=== PATIENT | female | born 1955 | race Caucasian/White ===

== ENCOUNTER 2016-06-18 09:53 | Day surgery (SDC) | payer MEDICARE, MEDICAID ==
--- NOTE | 2016-06-14 13:06 | PCM.ANEPRE ---
Anesthesia Pre-Op Review Reason for Review: LEADLESS PACEMAKER,HX OF DVT/PE/CEREBRAL EMBOLI THRU PFO S/ P IVC FILTER Anesthesia Recommendations: Proceed with Procedure Additional Comments 60y F with multiple medical problems scheduled for basilic vein transposition to render previously created AV fistula appropriate for dialysis. 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 She is now off anticoagulation due to bleeding from her gynecologic cancer and has an IVC filter in place. Is scheduled to be dialyzed on 06/17/16. Also of note, her most recent CBC showed her to be moderately anemic and thrombocytopenic with platelets of 70k. She underwent AV fistula formation in under local/MAC and did fine. A/P: 60y F with multiple co-morbidities --Attempted to talk to Kiarra Schmidt about the case. His pre-op indicates that he became aware of her Stage 4 CA only after her interview. And he was therefore going to talk to Dr Mcmanus and perhaps postpone the case --Ideally case would be done under local and light MAC though that is not always possible with vein transposition --labs to be checked on AM of surgery --consider having platelets available as well MD Pb Ivy Scott D MD Jun 14, 2016 13:06
[~2016-06-18] VITALS: Ht 152.4 cm; Wt 68.4 kg
--- NOTE | 2016-06-18 07:23 | PCM.HPANE ---
Patient Data Surgeon Admitting Provider: Attending Provider:Mina Schmidt MD Primary Care Physician:Heath Brandon DO Other Provider:Rachel Singeringham Anesthesia Reason for Visit End Stage Renal Failure Ht/WT & BMI Height (Feet): 5 Height (Inches): 0 Weight (Kilograms): 76.2 Body Mass Index 32.00 Allergies Coded Allergies: ampicillin (Verified Allergy, Unknown, UNKNOWN, 06/13/16) diphenhydramine (Verified Allergy, Unknown, UNKNOWN, 06/13/16) Past Anesthesia History Anesthesia History: Denies:: Anesthesia Reactions, Malignant Hyperthermia Diabetes History Hx Diabetes?: No MRSA MRSA: No Medications Blood Thinner: Coumadin Hypertension Medication: No Reported Medications Acetaminophen 325 Mg Rrhlbv199-339 Mg PO Q4H PRN For Fever Ref 0 06/13/16 Nystatin 1 Each Powder.ea.1 Each MC TID 03/11/16 Folic Acid/Vitamin B Comp W-C (Nephrocaps Softgel)1 Mg Capsule1 Mg PO DAILY 03/11/16 Melatonin 3 Mg Tablet3 Mg PO prn PRN Insomnia 03/11/16 Lorazepam (Ativan)0.5 Mg Tablet0.5 Mg PO Q6H PRN For Anxiety #30 11/26/15 Sevelamer Carbonate (Renvela)800 Mg Tablet1,600 Mg PO TIDWM 11/26/15 Fluticasone Propionate (Flonase Allergy Relief)50 Mcg/Actuation [place].susp2 Sprays NOSTRIL DAILY PRN ALLERGIES 09/27/15 Hydromorphone 2 Mg Tablet2 Mg PO Q4H PRN Pain Ref 0 09/18/15 Heparin Sod (Porcine) (Heparin 100 Unit/10 ml (10/ml))10 Unit/Ml [id number] Unit IV Portacath PRN PORTACATH FLUSH 09/18/15 Bisacodyl (Dulcolax Rectal)10 Mg Supp.rect10 Mg RC DAILY PRN For Constipation Ref 0 08/31/15 Discontinued Reported Medications Polyethylene Glycol 3350 17 Gm Powd.pack17 Gm PO DAILY 11/26/15 Loratadine (Claritin)10 Mg Uziztkx06 Mg PO DAILY PRN ALLERGIES Ref 0 09/27/15 Hydromorphone 2 Mg Tablet4 Mg PO Q4H PRN Pain Ref 0 09/27/15 Ondansetron (Zofran)4 Mg Tablet4 Mg PO Q8hrs PRN For Nausea 08/31/15 Discontinued Scripts Heparin Sodium,Porcine (Heparin Sodium)5,000 Unit/1 Ml Vial5,000 Unit SUBQ Q8 # 12 VIAL Prov:MixonTim H DO 11/28/15 Midodrine 10 Mg Tablet5 Mg PO TID #30 TABLET Prov:MixonLatashaTim H DO 11/28/15 Sennosides (Senna)8.6 Mg Kjouft85.2 Mg PO BID PRN For Constipation #30 TABLET Prov:Edna Ramirez MD 08/27/15 History History of ENT Problems?: Yes Other HEENT Pertinent History: S/P TONSILLECTOMY Hx of Heart Problems?: Yes Cardiovascular History: Positive for:: Cardiac Surgery (LEADLESS PACEMAKER 2015/[facility];IVC FILTER) Edema Hypertension Pacemaker (PLACED 11/2015 FOR AV BLOCK (LEADLESS CAPSULE IN RV)) Thrombophlebitis (hx of DVT/ and PE R/T PFO) Denies:: Chest Pain Congestive Heart Failure Heart Murmur (ECHO 06/2015 & 11/2015 EF 65-70%) Irregular Heartbeat Valvular Heart Disease Other Cardiac History: HX ANEMIA 06/12/16 PLTS 70 (RECEIVING CHEMO) Hx of Respiratory Problem?: Yes Respiratory History: Positive for:: Pneumonia (REMOTELY) Pulmonary Embolism (S/P IVC FILTER (PLACED WHEN WARFARIN STOPPED R/T VAGINAL BLEED)) Denies:: Asthma COPD Chest Surgery Dyspnea Emphysema Hemoptysis Oxygen Administration Tuberculosis Use of C-PAP Machine Hx Neurologic Problems?: Yes Neurological History: Positive for:: CVA ( from DVT thru PFO, periph vision loss) Denies:: Alzheimer's Disease Dementia Dizziness Headaches Multiple Sclerosis Parkinson's Disease Seizures Hx of GI Problems?: No Gastrointestinal History: Denies:: Diverticulitis Gastroesphageal Reflux Gastrointestinal Bleeding Heartburn Hepatitis Hiatal Hernia Rectal Bleeding Hx of Problems?: Yes Genitourinary History: Positive for:: HX of Hemodialysis (3 x weekly-,, S/P A/V FISTULA 03/2016 DIALYSIS ACCESS=CURRENT PROB) Urinary Tract Infection Denies:: Kidney Stones HX of Peritoneal Dialysis: No Female Hx: Denies:: Currently (RECENT HX VAG. BLEED) Endometriosis Pelvic Inflammatory Problems with Breasts? Skin History: Positive for:: Pressure Ulcers Denies:: History Skin Disorders? Hx Musculoskeletal Problems?: No Musculoskeletal History: Denies:: Back Injury Joint Replacement Musculoskeletal Trauma Hx of Psycho/Social Problems?: Yes Psycho Social History: Positive for:: Hx Depression Denies:: Anxiety Bipolar Disorder Suicide Attempt Hx Surgeries?: Yes (TONSILS,A/V FISTULA,IVC FILTER,PACEMAKER(LEADLESS)) Hx Any Other Health Problems?: Yes Other History: Positive for:: Cancer (Ovarian (POSSIBLY PRIMARY UTERINE SITE)) Hospitalization ([facility]) Denies:: Endocrine Disease Thyroid Disease History Blood Transfusions: Denies:: Blood Transfuse Reaction Blood Transfusions Hx Diabetes: No Hx Alcohol Use: NoHx Substance Use: No Smoking Status: Never Smoker Have You Smoked inLast 12 mo: No Stop/Bang S-Snoring: Do You Snore Loudly: No T-Tired: feel tired, fatigued: Yes O-Obsered: Observed not breath: No P-Blood Pressure: treated: Yes B- Body Mass Index > 35 kg/m2: No A- Age over 50: Yes N- Neck Large Circumference: No G- Gender Male: No SONNY Total Score: 3 Risk Assessment Category Category 1A: Patient has history of documented sleep apnea, and HAS NOT received any narcotic, sedative or anesthesia administration during this stay. Category 1B: Patient has history of documented sleep apnea, and HAS received any narcotic , sedative or anesthesia administration during this stay Category 2: Patient has SUSPECTED Obstructive Sleep Apnea, and HAS received any narcotic , sedative or anesthesia administration during this stay. Category 3: Patient has SUSPECTED Obstructive Sleep Apnea and HAS NOT received narcotic, sedative or anesthesia administration during this stay. Category 4: Outpatient in Procedural Areas with known sleep apnea or who screen positive for High Risk via the STOP/BANG questionnaire. Exam Exam General Appearance: Alert, Oriented X3, Cooperative HEENT/AIRWAY: MP 2, Neck Movement (from, thick), Mouth Opening (wnl) Lungs: Clear to Auscultation Heart: Exam Unremarkable Plan Impression Patient chart reviewed, patient interviewed and anesthestic plan with risks, benefits, and alternatives discussed, and informed consent obtained. NPO Status: MN ASA Physical Status: ASA3 Severe Disease Anesthetic Plan: GA Bene/Risks/Altern/Consents: Yes HP Complete Prior to Induction: Yes Other patient prefers GA, DR Schmidt prefers GA. Fan Ordaz MD Jun 18, 2016 07:23
[~2016-06-18 09:53] MED LIST: ACET325T51 PO; BISA10SU61 RC; FLUT9.9S NOSTRIL; FOLI1CAP PO; HYDR2TAB28 PO; LORA-302 PO; Lactated Ringer's 1,000 ML IV ONE; MELA3TAB35 PO; NYST1POW29 MC; SEVE800T7 PO; [UNRECOGNIZED DRUG - CODE] IV
[2016-06-18] MEDS ORDERED: Ropivacaine-PF 0.5% 30 mL Inj ONE (09:54)
[2016-06-18] MEDS ORDERED: Propofol 10,000 mCg/mL 20 mL Inj ONE (09:54)
[2016-06-18] MEDS ORDERED: fentaNYL-PF 50 mCg/mL 2 mL Inj ONE (09:54)
[2016-06-18] MEDS ORDERED: Ondansetron 2 mg/mL 2 mL Inj ONE (09:54)
[2016-06-18] MEDS ORDERED: Phenylephrine/NS 100 mCg/mL 10 mL Syringe IVPUSH ONE (09:54)
[2016-06-18] MEDS ORDERED: Lidocaine 1%-Epi 1:100,000 20 mL Inj ONE (09:54)
[2016-06-18 10:16] VITALS: BP 108/64; PULSE 91; RESP 19; O2SAT 94
[2016-06-18] MEDS ORDERED: 0.9% Sodium Chloride 500 ML IV ONE (10:56)
[2016-06-18 12:07] LABS: Mean Corpuscular Hemoglobin 29.2 pg (27.0-35.0); Mean Corpuscular Volume 93.9 fL (81-100)
[2016-06-18] MEDS ORDERED: 0.9% Sodium Chloride 500 ML IV SCH (12:34)
[2016-06-18] MEDS ORDERED: Ondansetron 2 mg/mL 2 mL Inj IVPUSH PRN (12:35)
[2016-06-18] MEDS ORDERED: EPHEDrine Sulfate 50 mg/mL Inj IVPUSH PRN (12:35)
[2016-06-18] MEDS ORDERED: hydrALAZINE 20 mg/mL Inj IVPUSH PRN (12:35)
[2016-06-18] MEDS ORDERED: Phenylephrine 10,000 mCg/mL Inj IVPUSH PRN (12:35)
[2016-06-18] MEDS ORDERED: fentaNYL-PF 50 mCg/mL 2 mL Inj IVPUSH PRN (12:35)
[2016-06-18] MEDS ORDERED: HYDROmorphone 1 mg/mL Inj IVPUSH PRN (12:35)
[2016-06-18] MEDS ORDERED: Labetalol 5 mg/mL 4 mL Inj IV PRN (12:35)
[2016-06-18] MEDS ORDERED: Atropine 0.4 mg/mL Inj IVPUSH PRN (12:35)
[2016-06-18] MEDS: Clindamycin 900 mg/50 mL D5W IV ONE ×2 (12:43→12:58)
[2016-06-18] MEDS ORDERED: Heparin 5,000 Unit/mL Inj IR ONE (13:26)
[2016-06-18] MEDS ORDERED: HYDROmorphone 1 mg/mL Inj IVPUSH ONE (15:20)
[2016-06-18 15:25] VITALS: BP 101/60; PULSE 89; RESP 20; O2SAT 97
--- NOTE | 2016-06-18 15:38 | PCM.ANEP1 ---
Post Anesthesia Phase 1 PACU Phase 1 Assessment Vital Signs Vital Signs Date Time Temp Pulse Resp B/P Pulse Ox O2 Delivery O2 Flow Rate FiO2 06/18/16 10:16 37.1 91 19 108/64 94 Room Air Anesthetic Administered: Regional Block Level of Alertness: Awake, talking TSAI's with Equal Strength: Yes Pain: No Nausea or Vomiting: No Oxygen Delivery: Room Air Lungs: Normal Air Movement Fan Ordaz MD Jun 18, 2016 15:38
--- NOTE | 2016-06-18 16:29 | PCM.ANEP2 ---
Post Anesthesia Evaluation ASA/CMS Post Anesthesia VS in Patient's Normal Range?: Yes Resp Stable; Airway Patent?: Yes CV Function & Hydration Stable: Yes Mental Status Recovered?: Yes Pain control Satisfactory?: Yes N/V Control Satisfactory?: Yes Fan Ordaz MD Jun 18, 2016 16:29
[2016-06-18 17:15] VITALS: BP 125/46; PULSE 85; RESP 20; O2SAT 95
[2016-06-18] MEDS ORDERED: Heparin 5,000 Unit/mL Inj ONE (17:42)
[2016-06-18] MEDS ORDERED: Heparin 5,000 Unit/mL Inj IRRIGATION ONE (19:10)
--- NOTE | 2016-06-18 22:30 | OP ---
[address] [address] OPERATIVE REPORT PATIENT: SHANNA BURROUGHS : 1955 MR#: [id number] ADMIT: 06/18/2016 JOB ID: [id number] DATE OF SURGERY: 06/18/2016 PREOPERATIVE DIAGNOSIS(ES): 1. End-stage renal failure. 2. Previous left brachial basilic fistula. POSTOPERATIVE DIAGNOSIS(ES): 1. End-stage renal failure. 2. Previous left brachial basilic fistula. PROCEDURE: Left basilic vein transposition. SURGEON: Mina Schmidt MD. LAPEL PADDER: Natanael Hylton PA-C. INDICATIONS: The patient is a 60-year-old female with multiple problems, but they include end-stage renal failure on dialysis, stage IV serous carcinoma, gynecological primary. She also has a history of stroke and DVT. She has had a previous left brachial basilic fistula by me and now is here for transposition of that fistula. She has a very short, thick left upper arm. FINDINGS: She had an excellent thrill in the fistula which dilated nicely and was approximately 12 mm in diameter, but the vein was short and I was not able to tunnel it but I was able to mobilize and then superficialize it by creating subcutaneous bridges underneath it. At the conclusion of the procedure, she had an excellent thrill in the fistula. PROCEDURE DESCRIPTION: After discussing options with Dr. Juan M Ordaz, the patient agreed to A regional block which Dr. Ordaz performed. He also administered sedation. She did get some supplemental local anesthesia with 1% lidocaine. The thrill in her fistula could be appreciated and after prepping her left upper extremity with ChloraPrep and draping in usual fashion, a vertical incision was made following the fistula. It was then exposed with sharp dissection and deep branches were divided and ligated with 3-0 silk suture ligatures. After completely freeing the vein, it was occluded proximally and distally. I then divided it distally at an angle and then was able to pull it out from underneath the sensory nerve so that it could be superficialized. I reattached the vein to itself with running 6-0 Prolene. The vein had been marked before dividing it to prevent twisting. I then placed a 15-German Hemovac drain through a separate stab wound, exiting the forearm which was secured with 2-0 nylon and placed deep in the operative bed. Subcutaneous bridges were then constructed with interrupted mattress sutures of 3-0 Vicryl. I then made a medial skin flap with an attempt to have the vein lay medial to the incision. The incision was then closed with running subcuticular 4-0 Vicryl and Dermabond. Estimated blood loss was 20 cc. There were no apparent complications. The final sponge, needle and instrument counts were announced as correct and she was returned to recovery room in stable condition. Critical assistance was provided by Natanael Hylton PA-C, without whose assistance the operation could not have been successfully completed.
[2016-07-17] MEDS ORDERED: WARF2TAB7 PO (19:21)
[2016-07-17] MEDS ORDERED: ONDA4TAB6 PO (19:21)
[2016-07-17] MEDS ORDERED: CITA10TA9 PO (19:21)
[2016-07-17] MEDS ORDERED: SENN-133 PO (19:21)
[2016-07-17] MEDS ORDERED: LORA10CA PO (19:21)
== END 2016-06-18 23:59 | disposition home or self-care (01) ==
LOC: SAS 09:53
PROVIDERS: ATTEND Surgery
DX: N18.6 End stage renal disease (principal); I12.0 Hypertensive chronic kidney disease with stage 5 chronic kidney disease or end stage renal disease; Z99.2 Dependence on renal dialysis; C56.9 Malignant neoplasm of unspecified ovary; Q21.1 Atrial septal defect; D64.9 Anemia, unspecified; I82.409 Acute embolism and thrombosis of unspecified deep veins of unspecified lower extremity; Z86.711 Personal history of pulmonary embolism; Z86.73 Personal history of transient ischemic attack (TIA), and cerebral infarction without residual deficits; Z92.21 Personal history of antineoplastic chemotherapy; Z79.01 Long term (current) use of anticoagulants
CPT/HCPCS: 36415; 36819; 76942; 84132; 85027; J1644; J2370; J2405; J2795; J7030

== ENCOUNTER 2016-07-19 02:23 | Day surgery (SDC) | payer MEDICARE, MEDICAID ==
[~2016-07-19] VITALS: Ht 152.4 cm; Wt 68.0 kg
[2016-07-19] VITALS (10 sets, daily range): BP systolic 76–106; BP diastolic 53–64; PULSE 75–89; RESP 14; O2SAT 93–100
[~2016-07-19 02:23] MED LIST changes: +CITA10TA9 PO; +LORA10CA PO; -Lactated Ringer's 1,000 ML IV ONE; +ONDA4TAB6 PO; +SENN-133 PO; +WARF2TAB7 PO
[2016-07-19 11:15] LABS: EOSINOPHILS % (AUTO) 0.6 % (0-5)
[2016-07-19 11:17] LABS: BASOPHILS % (AUTO) 0.3 % (0-3); MONOCYTES % (AUTO) 6.6 % (4-12); Mean Corpuscular Hemoglobin 29.3 pg (27.0-35.0); Mean Corpuscular Volume 92.1 fL (81-100); NEUTROPHILS % (AUTO) 84.5 % (40-74); Platelet Count 147 bil/L (150-400)
[2016-07-19] MEDS ORDERED: 0.9% Sodium Chloride 500 ML ONE (11:53)
[2016-07-19] MEDS ORDERED: Clindamycin 900 mg/50 mL D5W IV ONE (12:00)
[2016-07-19] MEDS ORDERED: Heparin 5,000 Units/500 mL NS Premix IV ONE (12:05)
[2016-07-19] MEDS ORDERED: fentaNYL-PF 50 mCg/mL 2 mL Inj ONE (12:36)
[2016-07-19] MEDS ORDERED: Heparin 1,000 Unit/mL 10 mL Inj ONE (12:36)
--- NOTE | 2016-07-19 15:13 | DRSVH ---
PROCEDURE: CV REPLACE CATH ALIALD 1. Conscious sedation for 30 minutes. 2. Left internal jugular vein tunneled hemodialysis catheter replacement. 3. Fluoroscopic guidance for catheter placement. INDICATIONS: ESRD TECHNIQUE: The indications, alternatives, benefits, risks, and complications of the procedure were e xplained to the patient and any family members present. Informed written consent was obtained and pl aced in the chart. The patient was brought to the angiography suite, and conscious sedation was admi nistered intravenously by [facility] staff, while continuous cardiorespiratory monitoring was pe rformed. Maximum sterile barrier technique was employed per standard protocol, including hand hygiene, cap, ma sk, sterile gown and gloves, and 2% chlorhexidine. 1% lidocaine was used for local anaesthesia. 2034 Glidewires were advanced through the lumens of the existing tunneled hemodialysis catheter. The tips of the wires were advanced into the IVC with the ai d of a Kumpe catheter. The catheter was removed, and a new dual-lumen hemodialysis catheter was advan carol ann under fluoroscopy with the tip in the right atrium. Adequate flow was obtained through both lumens of the catheter. The catheter was sutured at the left chest wall with nonabsorbable suture. Both lumens were flushed with heparinized saline. The patient tolerated the procedure without difficulty and was in stable condition at the conclusion of the procedure. COMPARISON: [facility], XA, CV REPLACE CATH ABHI, 10/27/2015, 13:44. FINDINGS: Fluoroscopic imaging demonstrates tip of the catheter was projected over the right atrium. IMPRESSION: Right internal jugular vein tunneled hemodialysis catheter replacement using fluoroscopic guidance. Dictated by: Lana Anderson M.D. on 07/19/2016 at 15:09 Approved by: Lana Anderson M.D. on 07/19/2016 at 15:11
--- NOTE | 2016-07-19 16:54 | NUR ---
Pt discharged from [facility], taken to kidney dialysis center via w/c. Pt's VSS, Lt upper chest tunnel cath in situ, CDI with no bleeding noted. Pt handoff given to dialysis nurse.
== END 2016-07-19 23:59 | disposition home or self-care (01) ==
LOC: SPI 02:23
PROVIDERS: ATTEND Radiology Vascular & Interventional Radiology
DX: Z49.01 Encounter for fitting and adjustment of extracorporeal dialysis catheter (principal); N18.6 End stage renal disease
CPT/HCPCS: 36415; 36581; 77001; 80048; 85025; 85730; 86922; 99152; 99153; C1750; C1769; J1644; J2250; J3010; J7040

== ENCOUNTER 2016-07-23 10:46 | Inpatient (IN) | payer MEDICARE, MEDICAID ==
[2016-07-23] VITALS (14 sets, daily range): BP systolic 76–174; BP diastolic 50–129; PULSE 92–133; RESP 11–29; O2SAT 92–100
[~2016-07-23] VITALS: Ht 152.4 cm; Wt 67.2 kg
--- NOTE | 2016-07-23 10:56 | ED.REPORT ---
HPI-Altered Mental Status Date of Service Jul 23, 2016 ED Provider: Efraín Richardson MD 60 year old female with ovarian cancer and ESRD, history of PE on dialysis presents to the ER via EMS due to altered mental status. Per chain saw driver, patient was en route to her dialysis appointment when she had a period of unresponsiveness. Patient has recently ceased chemotherapy treatments. History is limited due to patient's mental status. Nursing Notes Stated Complaint: UNRESPONSIVE Nursing Notes Reviewed: Yes Allergies: Coded Allergies: ampicillin (Verified Allergy, Unknown, UNKNOWN, 06/13/16) diphenhydramine (Verified Allergy, Unknown, UNKNOWN, 06/13/16) Scheduled Citalopram (Citalopram) 10 Mg Tablet 10 MG PO DAILY Folic Acid/Vitamin B Comp W-C (Nephrocaps Softgel) 1 Mg Capsule 1 MG PO DAILY Nystatin (Nystatin) 1 Each Powder.ea. 1 EACH MC TID Sevelamer Carbonate (Renvela) 800 Mg Tablet 1,600 MG PO TIDWM Warfarin Sodium (Warfarin Sodium) 2 Mg Tablet 2 MG PO DAILY Scheduled PRN Acetaminophen (Acetaminophen) 325 Mg Tablet 325-650 MG PO Q4H PRN PRN For Fever Bisacodyl (Dulcolax Rectal) 10 Mg Supp.rect 10 MG RC DAILY PRN PRN For Constipation Fluticasone Propionate (Flonase Allergy Relief) 50 Mcg/Actuation [place].susp 2 SPRAYS NOSTRIL DAILY PRN PRN ALLERGIES Heparin Sod (Porcine) (Heparin 100 Unit/10 ml (10/ml)) 10 Unit/Ml Unit 500 UNIT IV Portacath PRN PRN PORTACATH FLUSH Hydromorphone (Hydromorphone) 2 Mg Tablet 2-4 MG PO Q4H PRN PRN Pain Loratadine (Claritin) 10 Mg Capsule 10 MG PO DAILY PRN PRN For Congestion Lorazepam (Ativan) 0.5 Mg Tablet 0.5-1 MG PO Q6H PRN PRN For Anxiety Melatonin (Melatonin) 3 Mg Tablet 3 MG PO prn PRN PRN Insomnia Ondansetron (Zofran) 4 Mg Tablet 4 MG PO Q4H PRN PRN For Nausea Sennosides (Senna) 8.6 Mg Tablet 17.2 MG PO BID PRN PRN For Constipation General Time Seen by MD: 10:56 Chief Complaint Other (Altered Mental Status) Hx Obtained From: EMS Arrived By: Ambulance Sudden in Onset?: Yes Onset Occurred: Just prior to arrival Symptom Duration: Since onset Related History: Reports Renal failure Risk Factors Mcrae Coma Score > Age 5 Eye Opening: Open spontaneously (4) Past Medical History Past Medical History Right upper lobe PE, dx on 08/10/15 on Coumadin Ovarian cancer on palliative chemotherapy End stage renal disease on hemodialysis Normocytic anemia DVT Reports: Hypertension Reports: Renal failure Past Surgical History Dialysis catheter placement Reports: Tonsillectomy Family History noncontributory Smoking History Never Smoker Social History Alcohol Use: Denies alcohol use Drug Use: Denies drug use Occupation lives by self in one story house Ambulatory Status Independent Review of Systems Unable to Obtain ROS Mental status Physical Exam Initial Vital Signs Vital Signs (First) Date Time Temp Pulse Resp B/P Pulse Ox O2 Delivery O2 Flow Rate FiO2 07/23/16 10:55 36.8 121 29 96/68 100 Room Air 07/23/16 12:10 2 Initial VS: Reviewed Extremities: Vascular intact, Neuro intact, No swelling, No tenderness General/Constitutional: Well developed, Well nourished Head / Eyes: Normocephalic, PERRL (2-3mm) Neck: Atraumatic, Supple, No meningismus, Full range of motion, No swelling, Non-tender, No midline vertebral tend, No masses, No carotid bruit, Thyroid NL Respiratory / Chest: Breath sounds NL, Breath sounds = bilat, No respiratory distress, No rales, No rhonchi, No wheezing Cardiovascular: Regular rhythm, No gallop, No murmurs, No rubs Heart Rate / Rhythm: Positive: Tachycardia Neurologic: Speech NL Eyes closed, does not answer questions. Responds to voice. Repeated questioning. Says "Help me" repeatedly. Abdomen: Soft, Non-tender, No guarding, No rebound LLQ mass 4x5cm Interpretation & Diagnostics Lab Results Interpretation Result Diagram: 07/23/16 1128 07/23/16 1128 Test 07/23/16 11:28 07/23/16 12:53 White Blood Count 15.4th/mm3 (3.8-10.1) Red Blood Count 3.05mil/mm3 (3.90-5.20) Hemoglobin 8.7g/dL (12.0-15.6) Hematocrit 29.0% (35.0-46.0) Mean Corpuscular Volume 95.1fL (81-100) Mean Corpuscular Hemoglobin 28.5pg (27.0-35.0) Mean Corpuscular Hemoglobin Concent 30.0% (32.0-37.0) Red Cell Distribution Width 17.0% (12.3-15.4) Platelet Count 165bil/L (150-400) Neutrophils (%) (Auto) 82% (40-74) Lymphocytes (%) (Auto) 6% (14-46) Monocytes (%) (Auto) 6% (4-12) Eosinophils (%) (Auto) 0% (0-5) Basophils (%) (Auto) 0% (0-3) Band Neutrophils % 3% (1-5) Metamyelocytes % 1% (0-0) Myelocytes % 2% (0-0) D-Dimer 16.9mg/L (<0.50) Sodium Level 139mEq/L (134-144) Potassium Level 3.5mEq/L (3.5-5.2) Chloride Level 94mEq/L (97-108) Carbon Dioxide Level 18mmol/L (18-29) Blood Urea Nitrogen 27mg/dL (6-24) Creatinine 4.87mg/dL (0.57-1.00) Estimat Glomerular Filtration Rate 13mL/min (>59) Glucose Level 159mg/dL (60-99) Lactic Acid Level 7.3mmol/L (0.4-2.0) Calcium Level 8.0mg/dL (8.5-10.1) Phosphorus Level 4.9mg/dL (2.5-4.9) Magnesium Level 1.9mg/dL (1.6-2.6) Total Bilirubin 0.9mg/dL (0.0-1.2) Aspartate Amino Transf (AST/SGOT) 9U/L (0-50) Alanine Aminotransferase (ALT/SGPT) < 5U/L (0-32) Alkaline Phosphatase 78U/L (25-165) Troponin T 0.179ug/L (0.0-0.011) Total Protein 6.1g/dL (6.4-8.4) Albumin 2.2g/dL (3.4-5.0) Salicylates Level < 3.0ug/mL (30-250) Acetaminophen Level < 15.0ug/mL Rx (10-25) Alcohol, Quantitative < 10mg/dL (0-10) Urine Color Dark yellow (YELLOW) Urine Appearance Turbid (CLEAR,HAZY) Urine pH 7.0 (5.0-8.0) Urine Specific [place] 1.020 (1.003-1.035) Urine Protein 100mg/dL (NEG,TRACE) Urine Glucose (UA) Negativemg/dL (NEGATIVE) Urine Ketones Negativemg/dL (NEGATIVE) Urine Occult Blood Moderate (NEGATIVE) Urine Nitrite Positive (NEGATIVE) Urine Bilirubin Negative (NEGATIVE) Urine Urobilinogen Normalmg/dL (NORMAL) Urine Leukocyte Esterase Moderate (NEGATIVE) Urine RBC 0-2/hpf (0-2) Urine WBC Packed/hpf (0-5) Urine Epithelial Cells Occasional/hpf (NONE-MOD) Urine Crystals Ammonium biurates (NONE Urine Bacteria Many/hpf (NONE-FEW) Urine Hyaline Casts None/lpf (NONE) Urine Granular Casts None seen (NONE SEEN) Urine Waxy Casts None seen (NONE SEEN) Urine Red Blood Cell Casts None seen (NONE SEEN) Urine White Blood Cell Casts None seen (NONE SEEN) Urine Mucus None seen (None Seen) Urine Trichomonas None seen (NONE SEEN) Urine Yeast None (NONE SEEN) Urinalysis Comment None Urine Culture Reflexed Indicated ECG Interpretation ECG Interpretation: Sinus tachycardia, rate 136 RBBB Q waves in 2, 3, aVF T wave inversions in v1, v2 Unchanged from prior ECG 04/30/2016 Time: 11:15 Interpreted by: ED physician X-Ray Chest Interpretation Chest Xray Interpretation: IMPRESSION: No acute cardiopulmonary disease. Dictated by: Jonathon Tai M.D. on 07/23/2016 at 11:38 Approved by: Jonathon Tai M.D. on 07/23/2016 at 11:54 View: Portable, 1 view Interpretation / Wet Read by: Interpret - Radiologist CT Head Interpretation IMPRESSION: No acute intracranial disease process. Dictated by: Bonnie Caballero MD, PhD on 07/23/2016 at 12:04 Approved by: Bonnie Caballero MD, PhD on 07/23/2016 at 12:08 Study: Head CT no contrast Interpretation / Wet Read by: Interpret - Radiologist CT Chest Interpretation IMPRESSION: 1. No pulmonary embolus. 2. Numerous bilateral pulmonary nodules which have developed since prior examination obtained 05/04/2016. Pulmonary nodules have imaging characteristics most compatible with metastatic disease. 3. Subcarinal, mediastinal lymphadenopathy compatible with metastatic disease. 4. Liver has nodular margins suggestive of hepatic cirrhosis. Please correlate with clinical and laboratory findings. 5. Small amount of ascites in the upper abdomen. 6. Small left-sided pleural effusion. Trace right sided pleural effusion. Dictated by: Bonnie Caballero MD, PhD on 07/23/2016 at 13:09 Approved by: Bonnie Caballero MD, PhD on 07/23/2016 at 14:20 Study type: CT pulm angiogram Interpretation / Wet Read by: Interpret - Radiologist Re-Eval/Medical Decision Med Decision/Clinical Course 60-year-old female history of ovarian cancer status post chemotherapy discharged, end-stage renal disease on dialysis, history of PE presenting with altered mental status. Patient recently told by oncologist Dr. Mcmanus not candidate for further treatment at this time. She is unwilling to go on hospice. She was on her way to dialysis today and had episode of mental status. On arrival she was altered. Her lactate is 7. Urine positive for infection. D-dimer significantly elevated. CT angio chest no PE but with lung metastases. Troponins elevated, just baseline. Patient also with decubitus ulcer with packing in place. No surrounding erythema. Patient will be admitted for sepsis. She was given vancomycin and aztreonam to cover urinary source as well as decubitus ulcer. She was given 2 L normal saline. Discussed with nephrology Dr. Olmstead who is aware patient is here and will see. We will trend troponins given aspirin. No heparin at this time given history of vaginal bleeding on anticoagulants past. [facility]BAS[facility] is working to discuss with family for possible palliative care consult. Source of Hx: Old records Re-Evaluation/Progress : Time of Eval: 12:04 Re-Evaluation/Progress Note: Patient is resting peacefully. BP 160/90 Consultation #1: Referral / Consult Name: Neo Manzo MD Consulted With: Nephrology Call Returned at: 13:06 Note: No heparin. Consultation #2: Referral / Consult Name: Misty Gross MD Consulted With: Hospitalist Call Returned at: 14:05 Geotechnical Department Manager: Agrees with eval, Agrees with plan, Accepts admit Counseled Regarding: Diagnosis, Lab results, Need for admission Patient Discharge & Departure Impression: Primary Impression: Septic shock Additional Impressions: Decubitus ulcer Elevated troponin UTI (urinary tract infection) Disposition: ADMITTED TO HOSPITAL Discharge Condition All VS Reviewed: Yes Condition: Critical Referrals: Gavino Clark MD (PCP) Crit Care Except Billable Proc Time Spent: 30-74 minutes Services Performed: Patient management by me, Time spent at bedside, Reviewing test results, Reviewing imaging, Discussing patient care, Documentation in record Scribe Attestation Portions of this note were transcribed by Osiel Potter. I, Dr. Richardson, personally performed the history, physical exam and medical decision-making; I reviewed and confirmed the accuracy of the information in the transcribed note. Signed by: Cj Parra, 07/23/2016 - 14:26 copies to: Gavino Clark MD, Ben M MD Jul 23, 2016 10:56 OSIEL POTTER Jul 23, 2016 11:04
[2016-07-23] MEDS ORDERED: 0.9% Sodium Chloride 1,000 ML IV ONE ×2 (11:03→13:08)
[2016-07-23 11:47] LABS: Mean Corpuscular Hemoglobin 28.5 pg (27.0-35.0); Mean Corpuscular Volume 95.1 fL (81-100); Platelet Count 165 bil/L (150-400)
--- NOTE | 2016-07-23 11:56 | DRSVH ---
PROCEDURE: X-RAY CHEST ONE VIEW, PORTABLE ([id number]) INDICATIONS: altered mental status TECHNIQUE: One view of the chest was acquired. COMPARISON: [facility], CR, XR CHEST 1VW (PORTABLE), 04/30/2016, 14:03. FINDINGS: Surgical changes and devices: There is a double lumen dialysis catheter with the tip in right atrium. A Port-A-Cath is noted on the right with the tip in SVC. Lungs and pleura: There is diffuse interstitial prominence. No pleural effusions or pneumothorax. L ungs are clear. Mediastinum: Mediastinal contours appear normal. Heart size is normal. Bones and chest wall: No suspicious bony lesions. Overlying soft tissues appear unremarkable. IMPRESSION: No acute cardiopulmonary disease. Dictated by: Jonathon Tai M.D. on 07/23/2016 at 11:38 Approved by: Jonathon Tai M.D. on 07/23/2016 at 11:54
--- NOTE | 2016-07-23 12:09 | DRSVH ---
PROCEDURE: CT BRAIN WITHOUT CONTRAST ([id number]) INDICATIONS: Acute altered mental status TECHNIQUE: Noncontrast 4.5 mm thick angled axial sections acquired from the foramen magnum to the vertex, with c oronal reformats. COMPARISON: [facility], CT, CT BRAIN WO CON, 10/11/2015, 18:58. FINDINGS: Image quality: Excellent. CSF spaces: Basal cisterns are patent. No extra-axial fluid collections. The ventricles are symmet mattie in size and shape. Brain: No intracranial bleeds or masses. There is cerebral volume loss for age, with resultant vent ricular and sulcal prominence. There are periventricular and deep white matter chronic small vessel ischemic changes. Chronic bilateral parietal-occipital lobe infarcts are stable compared to prior exa mination. There is intracranial internal carotid artery atherosclerosis. Skull and face: Calvarium and visualized facial bones appear intact, without suspicious lesions. Sinuses: Mucosal thickening within the maxillary sinuses. The mastoids are clear. IMPRESSION: No acute intracranial disease process. Dictated by: Bonnie Caballero MD, PhD on 07/23/2016 at 12:04 Approved by: Bonnie Caballero MD, PhD on 07/23/2016 at 12:08
[2016-07-23 12:38] LABS: TROPONIN T 0.177 ug/L (0.0-0.011)
[2016-07-23 12:46] LABS: BASOPHILS % (AUTO) 0 % (0-3); EOSINOPHILS % (AUTO) 0 % (0-5); MONOCYTES % (AUTO) 6 % (4-12); NEUTROPHILS % (AUTO) 82 % (40-74)
[2016-07-23] MEDS ORDERED: Heparin 25K Unit/500mL 0.45 NS 25,000 UNIT in IV Premix 1 EACH IV ONE (12:50)
[2016-07-23] MEDS ORDERED: Heparin 5,000 Unit/mL Inj IVPUSH ONE (12:50)
[2016-07-23] MEDS ORDERED: Vancomycin Dose per Pharmacist XX ONE ×2 (13:10→14:50)
[2016-07-23] MEDS ORDERED: Aztreonam Inj 2,000 MG in Dextrose 5% Minibag Plus 100 ML IV ONE (13:10)
[2016-07-23 13:15] LABS: APPEARANCE,URINE TURBID (CLEAR,HAZY); COLOR,URINE DARK YELLOW (YELLOW)
[2016-07-23 13:16] LABS: OCCULT BLOOD,URINE MODERATE (NEGATIVE); UROBILINOGEN,URINE NORMAL (NORMAL)
[2016-07-23] MEDS ORDERED: Vancomycin Inj 1,250 MG in 0.9% Sodium Chloride 250 ML IV ONE (13:25)
--- NOTE | 2016-07-23 14:22 | DRSVH ---
PROCEDURE: CT ANGIO CHEST PULMONARY EMBOLISM ([id number]) INDICATIONS: dyspnea elevated ddimer TECHNIQUE: After the administration of intravenous contrast, 2 mm thick sections acquired from the pulmonary api kelin to the posterior costophrenic angles. 3-dimensional maximum intensity projection (MIP) coronal a nd sagittal reformats were then acquired through the thorax. For radiation dose reduction, the follo wing was used: automated exposure control, adjustment of mA and/or kV according to patient size. COMPARISON: [facility], [place], PET NECK TO MID THIGH STD, 03/08/2016, 10:33. Outside Film, CT, CT CHEST ABD PELVIS W CON, 05/04/2016, 9:07. FINDINGS: Image quality: Excellent. Pulmonary arteries: Pulmonary arteries are normal in size, and demonstrate no intraluminal filling d efects to suggest central pulmonary embolism. Lungs and pleura: Numerous nodules are scattered throughout the lungs bilaterally are most compatible with pulmonary metastatic disease. Small left-sided pleural effusion is noted. Trace pericardial eff usion is noted. No pneumothorax. Central and peripheral airways are patent. Mediastinum: Heart size is normal, without pericardial effusion 1.3 cm subcarinal mediastinal lymph node is noted compatible with mediastinal lymphadenopathy. Numerous additional prominent mediastinal lymph nodes are noted which do not meet pathologic size criteria. Prominent bilateral hilar lymph nod es are noted which do not meet pathologic size criteria. Thoracic aorta is normal in caliber and enha ncement. Esophagus is normal in caliber, without hiatal hernia. Bones and chest wall: Left chest wall dual lumen dialysis catheter is noted with tip projecting to th e distal SVC. Right chest wall Port-A-Cath is noted. No suspicious bony lesions. Ribs and thoracic s pine appear intact throughout. No axillary or supraclavicular adenopathy. Abdomen: Liver is slightly nodular margin. Small amount of ascites noted in the upper quadrants of th e abdomen. IMPRESSION: 1. No pulmonary embolus. 2. Numerous bilateral pulmonary nodules which have developed since prior examination obtained 016. Pulmonary nodules have imaging characteristics most compatible with metastatic disease. 3. Subcarinal, mediastinal lymphadenopathy compatible with metastatic disease. 4. Liver has nodular margins suggestive of hepatic cirrhosis. Please correlate with clinical and labo ratory findings. 5. Small amount of ascites in the upper abdomen. 6. Small left-sided pleural effusion. Trace right sided pleural effusion. Dictated by: Bonnie Caballero MD, PhD on 07/23/2016 at 13:09 Approved by: Bonnie Caballero MD, PhD on 07/23/2016 at 14:20
[2016-07-23] MEDS ORDERED: 0.9% Sodium Chloride 1,000 ML IV SCH ×2 (14:47)
[2016-07-23] MEDS ORDERED: Ondansetron 2 mg/mL 2 mL Inj IVPUSH PRN (14:50)
[2016-07-23] MEDS ORDERED: Alum-Mag Hydrox-Simeth 30 mL Suspension PO PRN (14:50)
[2016-07-23] MEDS ORDERED: Polyethylene Glycol (PEG) 17 Gm Powder PO PRN (14:50)
[2016-07-23 15:14] LABS: Magnesium 1.9 mg/dL (1.6-2.6); Phosphorus 4.9 mg/dL (2.5-4.9)
[2016-07-23 15:27] LABS: TROPONIN T 0.179 ug/L (0.0-0.011)
[2016-07-23] MEDS: Sodium Chloride LOK Flush 10 mL Syringe IVFLUSH SCH (16:30)
[2016-07-23] MEDS ORDERED: HepLOK Flush 100 unit/mL 5 mL Inj IVFLUSH PRN ×2 (16:40→20:00)
[2016-07-23] MEDS ORDERED: Sodium Chloride LOK Flush 10 mL Syringe IVFLUSH PRN ×2 (16:40)
[2016-07-23] MEDS ORDERED: Heparin 5,000 Unit/mL Inj SUBQ SCH (17:00)
--- NOTE | 2016-07-23 17:38 | CONS ---
[address] [address] CONSULTATION REPORT PATIENT: SHANNA BURROUGHS : 1955 MR#: [id number] ADMIT: 07/23/2016 JOB ID: [id number] DATE OF SERVICE: 07/23/2016 NEPHROLOGY CONSULTATION: REQUESTING PHYSICIAN: Misty Gross MD REASON FOR CONSULTATION: Management of end-stage renal disease. CHIEF COMPLAINT: Unresponsive. 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 The patient is a [place] resident. She was brought to the dialysis unit today. Unfortunately, en route the patient became unresponsive. The patient then was brought to the emergency department for immediate medical attention. Her initial blood pressure was 96/86 with a heart rate of 121. Initial blood work showed WBC of 15.4, lactic acid of 7.3. Initial UA showed packed WBCs. The patient received IV fluid bolus with normal saline 2 L and started on broad-spectrum IV antibiotics including aztreonam and vancomycin. Renal was consulted to continue dialysis while the patient is being hospitalized. During my visit the patient is very lethargic. She is not able to provide me any further history. Her best friend is at the bedside. She is aware of the patient's condition. She would like to discuss with her power of admitted attorneys, who is her niece, regarding overall treatment goals. The patient was last seen by Dr. Mcmanus on Jul 17, 2016. He suggested a referral to hospice given her very poor prognosis and poor functional status. Her friend stated that initially the patients code status was DNR/DNI, and recently the patient has changed to full code. Nonetheless, Dr. Mcmanus did not offer any further chemotherapy. The patient also has a malfunctioning hemodialysis access. Her fistula is not working and last week she just had a catheter exchange for dialysis. Of note, in April 2016 she had significant uterine bleeding and at that time she was admitted at the [facility]. The anticoagulant was stopped. She had an IVC filter placed. PAST MEDICAL HISTORY: 1. End-stage renal disease, on hemodialysis every Friday, , Friday. 2. Metastatic serous carcinoma of potentially uterine origin versus fallopian tube, status post second-line chemotherapy with low-intensity regimen weekly Doxil. 3. History of PE. 4. Embolic stroke. 5. PFO. 6. Uterine bleeding. 7. Status post IVC filter placement. 8. Anemia of chronic kidney disease. PAST SURGICAL HISTORY: 1. Status post AV fistula creation. 2. Status post tunneled catheter placement. 3. Status post IVC filter placement. SOCIAL HISTORY: The patient is a detention resident. She denies current use of alcohol, tobacco, illicit drugs. FAMILY HISTORY: No kidney disease in the family. MEDICATIONS: Reviewed. REVIEW OF SYSTEMS: Unable to obtain due to altered mental status. ALLERGIES: AMPICILLIN AND BENADRYL. PHYSICAL EXAMINATION: Vitals: Temperature 36.8, pulse 97, respiratory 13, blood pressure 94/57, O2 sat 100% on 2 L nasal cannula. General appearance: Lethargic. Localized pain. Unable to answer questions. HEENT: Moderate pallor. No jaundice. No JVD. Dry mucous membranes. No lymphadenopathy. No thyroid enlargement. Heart: Regular rhythm. Normal S1, S2. Tachycardic: Lungs decreased breath sounds at bases. No wheezing. No rhonchi. Abdomen: Soft. Moderate tenderness on the left lower quadrant. Decreased bowel sounds. Extremities: No edema, cyanosis, or clubbing of fingers. Laboratory: Sodium 139, potassium 3.5, chloride 94, bicarb 18, BUN 27, creatinine 4.87. Lactic acid 7.3, phosphorus 4.9, magnesium 1.9. Troponin 0.177, albumin 2.2. Urine: Packed WBC. ASSESSMENT: 1. Altered mental status, metabolic encephalopathy. 2. Septic shock. 3. Suspected complicated urinary tract infection. 4. End-stage renal disease, on hemodialysis. 5. 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 6. Pulmonary embolism. 7. Status post inferior vena cava filter. 8. Uterine bleeding. 9. Anemia in chronic kidney disease. PLAN: Per renal standpoint, we will hold dialysis today given unstable condition. Overall prognosis is very poor. I suggest to consult palliative care and possible hospice referral. For now, the patient will be on the broad-spectrum IV antibiotics and she will have a complete septic workup. BOOM
[2016-07-23] MEDS: 0.9% Sodium Chloride 250 ML IV SCH (17:48)
--- NOTE | 2016-07-23 19:19 | PCM.HPMED ---
Subjective Date of Service Jul 23, 2016 Primary Provider: Admitting Physician: Misty Gross MD Primary Care Physician: Gavino Clark MD Attending Physician: Misty Gross MD Admit Status: From the Emergency Department, [facility] Telemetry Chief Complaint: Acute encephalopathy History of Present Illness: 60-year-old female who has a history of metastatic ovarian carcinoma which per ER M.D. he is not suitable for further ongoing treatments as it is unresponsive and history of end-stage renal disease and also has a history of a PE who presents with acute encephalopathy as she was en route to dialysis when she had. Of unresponsiveness and was brought into the emergency room. Have UTI with sepsis, was 15.4 she had sinus tachycardia rate of 136. Nephrology was also counseled that at the time of admission she was started on IV vancomycin and IV aztreonam in the emergency room for UTI with sepsis. She was unable to give any further history as she was quite confused but did arouse to pain. She did have a CTA of chest which is as follows: PROCEDURE: CT ANGIO CHEST PULMONARY EMBOLISM ([id number]) INDICATIONS: dyspnea elevated ddimer TECHNIQUE: After the administration of intravenous contrast, 2 mm thick sections acquired from the pulmonary apices to the posterior costophrenic angles. 3-dimensional maximum intensity projection (MIP) coronal and sagittal reformats were then acquired through the thorax. For radiation dose reduction, the following was used: automated exposure control, adjustment of mA and/or kV according to patient size. COMPARISON: [place], [place], PET NECK TO MID THIGH STD, 03/08/2016, 10:33. Outside Film, CT, CT CHEST ABD PELVIS W CON, 05/04/2016, 9:07. FINDINGS: Image quality: Excellent. Pulmonary arteries: Pulmonary arteries are normal in size, and demonstrate no intraluminal filling defects to suggest central pulmonary embolism. Lungs and pleura: Numerous nodules are scattered throughout the lungs bilaterally are most compatible with pulmonary metastatic disease. Small left- sided pleural effusion is noted. Trace pericardial effusion is noted. No pneumothorax. Central and peripheral airways are patent. Mediastinum: Heart size is normal, without pericardial effusion 1.3 cm subcarinal mediastinal lymph node is noted compatible with mediastinal lymphadenopathy. Numerous additional prominent mediastinal lymph nodes are noted which do not meet pathologic size criteria. Prominent bilateral hilar lymph nodes are noted which do not meet pathologic size criteria. Thoracic aorta is normal in caliber and enhancement. Esophagus is normal in caliber, without hiatal hernia. Bones and chest wall: Left chest wall dual lumen dialysis catheter is noted with tip projecting to the distal SVC. Right chest wall Port-A-Cath is noted. No suspicious bony lesions. Ribs and thoracic spine appear intact throughout. No axillary or supraclavicular adenopathy. Abdomen: Liver is slightly nodular margin. Small amount of ascites noted in the upper quadrants of the abdomen. IMPRESSION: 1. No pulmonary embolus. 2. Numerous bilateral pulmonary nodules which have developed since prior examination obtained 05/04/2016. Pulmonary nodules have imaging characteristics most compatible with metastatic disease. 3. Subcarinal, mediastinal lymphadenopathy compatible with metastatic disease. 4. Liver has nodular margins suggestive of hepatic cirrhosis. Please correlate with clinical and laboratory findings. 5. Small amount of ascites in the upper abdomen. 6. Small left-sided pleural effusion. Trace right sided pleural effusion. Review of Systems: Unobtainable due to patient's mental status Allergies Coded Allergies: ampicillin (Verified Allergy, Unknown, UNKNOWN, 06/13/16) diphenhydramine (Verified Allergy, Unknown, UNKNOWN, 06/13/16) Home Medications Scheduled Citalopram (Citalopram) 10 Mg Tablet 10 MG PO DAILY Folic Acid/Vitamin B Comp W-C (Nephrocaps Softgel) 1 Mg Capsule 1 MG PO DAILY Nystatin (Nystatin) 1 Each Powder.ea. 1 EACH MC TID Sevelamer Carbonate (Renvela) 800 Mg Tablet 1,600 MG PO TIDWM Warfarin Sodium (Warfarin Sodium) 2 Mg Tablet 2 MG PO DAILY Scheduled PRN Acetaminophen (Acetaminophen) 325 Mg Tablet 325-650 MG PO Q4H PRN PRN For Fever Bisacodyl (Dulcolax Rectal) 10 Mg Supp.rect 10 MG RC DAILY PRN PRN For Constipation Fluticasone Propionate (Flonase Allergy Relief) 50 Mcg/Actuation [place].susp 2 SPRAYS NOSTRIL DAILY PRN PRN ALLERGIES Heparin Sod (Porcine) (Heparin 100 Unit/10 ml (10/ml)) 10 Unit/Ml Unit 500 UNIT IV Portacath PRN PRN PORTACATH FLUSH Hydromorphone (Hydromorphone) 2 Mg Tablet 2-4 MG PO Q4H PRN PRN Pain Loratadine (Claritin) 10 Mg Capsule 10 MG PO DAILY PRN PRN For Congestion Lorazepam (Ativan) 0.5 Mg Tablet 0.5-1 MG PO Q6H PRN PRN For Anxiety Melatonin (Melatonin) 3 Mg Tablet 3 MG PO prn PRN PRN Insomnia Ondansetron (Zofran) 4 Mg Tablet 4 MG PO Q4H PRN PRN For Nausea Sennosides (Senna) 8.6 Mg Tablet 17.2 MG PO BID PRN PRN For Constipation PMH Past Medical History Right upper lobe PE, dx on 08/10/15 on Coumadin Ovarian cancer on palliative chemotherapy End stage renal disease on hemodialysis Normocytic anemia DVT Reports: Hypertension Reports: Renal failure Past Surgical History Dialysis catheter placement Reports: Tonsillectomy Family History Unobtainable Social History Hx Alcohol Use: No Hx Substance Use: No Hx Tobacco Use: No Smoking Status: Never Smoker Exam Vital Signs Vital Sign - Last Date Time Temp Pulse Resp B/P Pulse Ox O2 Delivery O2 Flow Rate FiO2 07/23/16 15:57 93 07/23/16 15:50 36.5 16 100/65 92 Nasal Cannula 3.00 Exam Constitutional: Middle-aged woman who is responsive only to pain Head normocephalic atraumatic Chest decreased breath sounds at her bases Cor: Tachycardic S1-S2 Abdomen: Soft nontender bowel sounds present Extremities exam reveals trace bilateral pedal edema Skin reveals no rashes Psychiatric unable to assess Neuro moves all extremities to painful stimuli does not open her eyes or respond to commands Lab and Diagnostics Labs Laboratory Tests 72 Hours Test 07/23/16 11:28 07/23/16 12:53 White Blood Count 15.4th/mm3 (3.8-10.1) Red Blood Count 3.05mil/mm3 (3.90-5.20) Hemoglobin 8.7g/dL (12.0-15.6) Hematocrit 29.0% (35.0-46.0) Mean Corpuscular Volume 95.1fL (81-100) Mean Corpuscular Hemoglobin 28.5pg (27.0-35.0) Mean Corpuscular Hemoglobin Concent 30.0% (32.0-37.0) Red Cell Distribution Width 17.0% (12.3-15.4) Platelet Count 165bil/L (150-400) Neutrophils (%) (Auto) 82% (40-74) Lymphocytes (%) (Auto) 6% (14-46) Monocytes (%) (Auto) 6% (4-12) Eosinophils (%) (Auto) 0% (0-5) Basophils (%) (Auto) 0% (0-3) Band Neutrophils % 3% (1-5) Metamyelocytes % 1% (0-0) Myelocytes % 2% (0-0) D-Dimer 16.9mg/L (<0.50) Sodium Level 139mEq/L (134-144) Potassium Level 3.5mEq/L (3.5-5.2) Chloride Level 94mEq/L (97-108) Carbon Dioxide Level 18mmol/L (18-29) Blood Urea Nitrogen 27mg/dL (6-24) Creatinine 4.87mg/dL (0.57-1.00) Estimat Glomerular Filtration Rate 13mL/min (>59) Glucose Level 159mg/dL (60-99) Lactic Acid Level 7.3mmol/L (0.4-2.0) Calcium Level 8.0mg/dL (8.5-10.1) Phosphorus Level 4.9mg/dL (2.5-4.9) Magnesium Level 1.9mg/dL (1.6-2.6) Total Bilirubin 0.9mg/dL (0.0-1.2) Aspartate Amino Transf (AST/SGOT) 9U/L (0-50) Alanine Aminotransferase (ALT/SGPT) < 5U/L (0-32) Alkaline Phosphatase 78U/L (25-165) Troponin T 0.179ug/L (0.0-0.011) Total Protein 6.1g/dL (6.4-8.4) Albumin 2.2g/dL (3.4-5.0) Salicylates Level < 3.0ug/mL (30-250) Acetaminophen Level < 15.0ug/mL Rx (10-25) Alcohol, Quantitative < 10mg/dL (0-10) Urine Color Dark yellow (YELLOW) Urine Appearance Turbid (CLEAR,HAZY) Urine pH 7.0 (5.0-8.0) Urine Specific [place] 1.020 (1.003-1.035) Urine Protein 100mg/dL (NEG,TRACE) Urine Glucose (UA) Negativemg/dL (NEGATIVE) Urine Ketones Negativemg/dL (NEGATIVE) Urine Occult Blood Moderate (NEGATIVE) Urine Nitrite Positive (NEGATIVE) Urine Bilirubin Negative (NEGATIVE) Urine Urobilinogen Normalmg/dL (NORMAL) Urine Leukocyte Esterase Moderate (NEGATIVE) Urine RBC 0-2/hpf (0-2) Urine WBC Packed/hpf (0-5) Urine Epithelial Cells Occasional/hpf (NONE-MOD) Urine Crystals Ammonium biurates (NONE Urine Bacteria Many/hpf (NONE-FEW) Urine Hyaline Casts None/lpf (NONE) Urine Granular Casts None seen (NONE SEEN) Urine Waxy Casts None seen (NONE SEEN) Urine Red Blood Cell Casts None seen (NONE SEEN) Urine White Blood Cell Casts None seen (NONE SEEN) Urine Mucus None seen (None Seen) Urine Trichomonas None seen (NONE SEEN) Urine Yeast None (NONE SEEN) Urinalysis Comment None Urine Culture Reflexed Indicated Result Diagram: 07/23/16 1128 07/23/16 1128 Assessment & Plan # UTI with sepsis with criteria of tachycardia and elevated white count acute encephalopathy, acute, present on admission After patient was admitted to [facility] family and the [facility] got together and completed post form which states DNR/DNI comfort care only we will have decided to stop dialysis however will continue with IV antibiotics for now and can be determined how long that will be continued with. Ultimate goal is comfort care. # Metastatic ovarian carcinoma, chronic, present on admission Patient no longer candidate for further treatments and does mention about comfort care measures will be pursued. Time spent 60 minutes Misty Gross MD Jul 23, 2016 19:19
--- NOTE | 2016-07-23 19:35 | NUR ---
Admit Pt admitted to [facility] at 15:45. Vitals taken, pt placed on P500 bed for skin protection and mepilex drsg was placed on pt's coccyx. Pt has stg 4 pressure ulcer on coccyx, wound care notified. Dr Abdelrahman villar regarding POSLST and new POLST was filled out with DPOA/MPOA and family. Addendum: 07/23/16 at 1942 by SELENE WHYTE RN Pt DNR/DNI and comfort care according to KALEN
[2016-07-23] MEDS ORDERED: Famotidine Inj 20 MG in IV Premix 1 EACH IV SCH (21:00)
[2016-07-23] MEDS: Aztreonam Inj 500 MG in Dextrose 5% 50 ML IV SCH (21:12)
--- NOTE | 2016-07-23 23:15 | PCM.CONPHA ---
Subjective Date of Service: Jul 23, 2016 Acute encephalopathy Reason for Pharmacy Consult: Vancomycin Dosing Objective Vital Signs Date Time Temp Pulse Resp B/P Pulse Ox O2 Delivery O2 Flow Rate FiO2 07/23/16 20:15 Supplement Oxygen 07/23/16 20:11 36.5 94 14 115/74 98 Nasal Cannula 2.50 07/23/16 20:00 94 07/23/16 19:00 92 07/23/16 15:57 93 07/23/16 15:50 36.5 98 16 100/65 92 Nasal Cannula 3.00 07/23/16 15:24 100 11 91/58 98 Nasal Cannula 2 07/23/16 14:29 97 13 94/57 100 Nasal Cannula 2 07/23/16 13:36 107 16 85/53 100 Nasal Cannula 2 07/23/16 13:16 122 22 174/129 100 Nasal Cannula 2 07/23/16 12:10 121 16 76/51 98 Nasal Cannula 2 07/23/16 11:45 85/50 07/23/16 11:38 133 16 79/52 98 Room Air 07/23/16 10:55 36.8 121 29 96/68 100 Room Air Weight (Kilograms): 65.000 Height (Feet): 5 Height (Inches): 0.00 Test 07/23/16 11:28 07/23/16 12:53 White Blood Count 15.4th/mm3 (3.8-10.1) Red Blood Count 3.05mil/mm3 (3.90-5.20) Hemoglobin 8.7g/dL (12.0-15.6) Hematocrit 29.0% (35.0-46.0) Mean Corpuscular Volume 95.1fL (81-100) Mean Corpuscular Hemoglobin 28.5pg (27.0-35.0) Mean Corpuscular Hemoglobin Concent 30.0% (32.0-37.0) Red Cell Distribution Width 17.0% (12.3-15.4) Platelet Count 165bil/L (150-400) Neutrophils (%) (Auto) 82% (40-74) Lymphocytes (%) (Auto) 6% (14-46) Monocytes (%) (Auto) 6% (4-12) Eosinophils (%) (Auto) 0% (0-5) Basophils (%) (Auto) 0% (0-3) Band Neutrophils % 3% (1-5) Metamyelocytes % 1% (0-0) Myelocytes % 2% (0-0) D-Dimer 16.9mg/L (<0.50) Sodium Level 139mEq/L (134-144) Potassium Level 3.5mEq/L (3.5-5.2) Chloride Level 94mEq/L (97-108) Carbon Dioxide Level 18mmol/L (18-29) Blood Urea Nitrogen 27mg/dL (6-24) Creatinine 4.87mg/dL (0.57-1.00) Estimat Glomerular Filtration Rate 13mL/min (>59) Glucose Level 159mg/dL (60-99) Lactic Acid Level 7.3mmol/L (0.4-2.0) Calcium Level 8.0mg/dL (8.5-10.1) Phosphorus Level 4.9mg/dL (2.5-4.9) Magnesium Level 1.9mg/dL (1.6-2.6) Total Bilirubin 0.9mg/dL (0.0-1.2) Aspartate Amino Transf (AST/SGOT) 9U/L (0-50) Alanine Aminotransferase (ALT/SGPT) < 5U/L (0-32) Alkaline Phosphatase 78U/L (25-165) Troponin T 0.179ug/L (0.0-0.011) Total Protein 6.1g/dL (6.4-8.4) Albumin 2.2g/dL (3.4-5.0) Salicylates Level < 3.0ug/mL (30-250) Acetaminophen Level < 15.0ug/mL Rx (10-25) Alcohol, Quantitative < 10mg/dL (0-10) Urine Color Dark yellow (YELLOW) Urine Appearance Turbid (CLEAR,HAZY) Urine pH 7.0 (5.0-8.0) Urine Specific [place] 1.020 (1.003-1.035) Urine Protein 100mg/dL (NEG,TRACE) Urine Glucose (UA) Negativemg/dL (NEGATIVE) Urine Ketones Negativemg/dL (NEGATIVE) Urine Occult Blood Moderate (NEGATIVE) Urine Nitrite Positive (NEGATIVE) Urine Bilirubin Negative (NEGATIVE) Urine Urobilinogen Normalmg/dL (NORMAL) Urine Leukocyte Esterase Moderate (NEGATIVE) Urine RBC 0-2/hpf (0-2) Urine WBC Packed/hpf (0-5) Urine Epithelial Cells Occasional/hpf (NONE-MOD) Urine Crystals Ammonium biurates (NONE Urine Bacteria Many/hpf (NONE-FEW) Urine Hyaline Casts None/lpf (NONE) Urine Granular Casts None seen (NONE SEEN) Urine Waxy Casts None seen (NONE SEEN) Urine Red Blood Cell Casts None seen (NONE SEEN) Urine White Blood Cell Casts None seen (NONE SEEN) Urine Mucus None seen (None Seen) Urine Trichomonas None seen (NONE SEEN) Urine Yeast None (NONE SEEN) Urinalysis Comment None Urine Culture Reflexed Indicated Assessment/Plan Assessment/Plan Vanco per Rx Indication: Sepsis/UTI Pt is now DNR/DNI, no more dialysis Will draw 24 hrs level tomorrow @ 1500 Goal is 15-20; LD of 1250mg given @ 1523 Giuseppe Snyder PharmD Jul 23, 2016 23:15
[2016-07-23] MEDS ORDERED: [UNRECOGNIZED DRUG - CODE] MC (23:50)
[2016-07-23] MEDS ORDERED: MEGE40TA PO (23:52)
[2016-07-24] VITALS (7 sets, daily range): BP systolic 87–97; BP diastolic 52–62; PULSE 84–112; RESP 16–18; O2SAT 93–99
[2016-07-24] MEDS ORDERED: SODI15OR8 PO (00:01)
[2016-07-24] MEDS: Sodium Chloride LOK Flush 10 mL Syringe IVFLUSH SCH ×3 (00:15→16:19)
--- NOTE | 2016-07-24 04:05 | NUR ---
Comfort Care: Reviewed the POC with Dr. Gross at the beginning of the shift. New orders received to support the pt in comfort care measures. Code Status updated to DNR/DNI. Admission completed with Chata BURGESS. Pt will open her eyes and coherently verbalize. Pt has denied pain throughout the shift. Pt turned, however, the pt prefers to lie on her left side and is able to sleep comfortably when positioned to that side. Mepilex dressing remains intact to sacrum; no direct observation of skin beneath dressing. Pt has remained in a NSR in the 90s with an IVCD. Will cont. to monitor.
[2016-07-24] MEDS: Aztreonam Inj 500 MG in Dextrose 5% 50 ML IV SCH ×3 (06:04→23:16)
--- NOTE | 2016-07-24 10:56 | NUR ---
Palliative care note D/A: Palliative care referral received today in PCC rounds, Dr. Beard to consult as she has seen pt in the past. Had received call yesterday ( 07/23/16) from Lisset SOUSA at [facility] who notes that pt is in ED with discussion of goals of care happening. Lisset wondering if PC is involved. No referral to PC at that time. Phone call to Lisset SOUSA, [facility] to discuss case. Pt is noted to have several DPOA's. Primary DPOA is niece Rahul Amador who can be reached at [phone]. Lisset thinks that another niece may be DPOA as well. Review of chart reveals mention of a niece named Ann Marie ) who at that time worked at local adult family home. Secondary DPOA's are pt halfway friends Chata and Marvin Woody, Note that the [place] are the only contacts listed in pt chart. The [place] [employer] can be reached at [phone] or [phone]. 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 Family has been experiencing dissonance within the family system and pt has relied on her friends. Pt is quite close to her mother who lives two houses away from pt former house. Pt and mother quite close for years. Mother is in her mid 90's and still living in her home where she is cared for by pt older (15 years older) sister Kya. The pt does not have a close relationship with Kya. Pt's mother depends on Kya for transportation and other needs. The patient has been reported to be less clear, from a cognitive standpoint. She is not processing information in her usual fashion and flip-flops while attempting to make decisions. She has been fretful during dialysis. These changes in mood and cognition have become more apparent during the past couple of weeks. Pt met with Dr. Mcmanus and John SOUSA from the [facility] last week and were told that there was no further chemotherapy available to treat her ovarian cancer. Dr. Mcmanus notes a significant decline in functional status. Pt's DPOA's were present for this discussion. Pt is a emt intermediate resident of [facility]. She is noted to have Medicare and Medicaid. Pt is noted to not be partnered at this time and has never had children. Have asked Lisset SOUSA [facility] to see if they have copy of DPOA. This worker is only able to find copy of recent POSLT in chart which noted full code. Per Dr. Gross admit note- pt was made DNR/DNI with comfort measures and also talked about stopping dialysis with question remaining about continuation of IV antibx which were started in ED. Phone call to Kim at [facility]. Discuss pt with her. Hospice had received referral but it appears that pt was not able to make final decision about starting hospice. Kim aware that pt from [facility]. If pt able to dc back to facility, possible to have [facility] as well with pt insurance. Note that Dr. Olmstead has seen pt during this admit and is holding dialysis. Note that decision to move towards DNR/DNI comfort was made in concert with the [place] with possible efforts needed to discuss with family. Phone call from Lisset who notes that kidney center does not have copy of DPOA. Phone call with Dr. Beard to inform as to above. P: Palliative care to follow. Marisa HEAD, [facility] Addendum: 07/24/16 at 1405 by ANN MARIE MCLAIN Palliative care note amendment Phone call to Kim at [facility] and have left msg regarding possible time to open case. Dr. Beard has spoken to Dr. Ortiz who notes possible need for dc should family decision be to take pt off IV antibiotics and her condition remains stable. Discussed with Dr. Beard. Awaiting to hear from [facility]. [facility]
--- NOTE | 2016-07-24 11:00 | NUR ---
Palliative Care Palliative Care received verbal order from Dr Ortiz 07/24/16 to assist with goals of care. Patient is a 60 year old woman with metastatic uterine cancer and end-stage renal disease. She presented with decreased LOC and was admitted 07/23/16. The Palliative Care Team saw patient as an inpatient while admitted 11/2015. Patient was also seen by Dr Beard/Outpatient Palliative Care in 11/2015. Brodie (niece/DPOA#1) [phone] Marvin Mckay/Chata Hsu (friends/DPOA#2) [phone], Palliative Care to follow. Ella Jennings
--- NOTE | 2016-07-24 11:41 | PCM.PNMED ---
Subjective Date of Service Jul 24, 2016 Subjective resting, lying in bed comfortably. DNR/DNI, comfort measures. Exam Vital Signs Vital Sign - Last Date Time Temp Pulse Resp B/P Pulse Ox O2 Delivery O2 Flow Rate FiO2 07/24/16 10:58 107 07/24/16 09:29 36.2 16 87/52 99 Nasal Cannula 2.00 Intake and Output 07/23/16 07/23/16 07/24/16 Cumulative From/Thru 15:00 23:00 07:00 07/23/16 11:47 - 07/24/16 05:11 Intake Total 2100 ml 360 ml 168 ml 2628 ml Output Total 0 ml 0 ml Balance 2100 ml 360 ml 168 ml 2628 ml Intake Oral 360 ml 360 ml IV Total 2100 ml 168 ml 2268 ml Output Urine Total 0 ml 0 ml Exam General appearance: sleeping, lying on bed comfortably. family at the bedside. HEENT: Moderate pallor. No jaundice. No JVD. Dry mucous membranes. No lymphadenopathy. No thyroid enlargement. Heart: Regular rhythm. Normal S1, S2. Tachycardic: Lungs decreased breath sounds at bases. No wheezing. No rhonchi. Abdomen: Soft. Moderate tenderness on the left lower quadrant. Decreased bowel sounds. Extremities: No edema, cyanosis, or clubbing of fingers. Lab and Diagnostics Result Diagram: 07/23/16 1128 07/23/16 112 Assessment & Plan 1. Altered mental status. 2. Septic shock. 3. Suspected complicated urinary tract infection. 4. End-stage renal disease, on hemodialysis. 5. 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 6. Pulmonary embolism. 7. Status post inferior vena cava filter. 8. Uterine bleeding. 9. Anemia in chronic kidney disease. 10. DNR/DNI, comfort measures. PLAN: Per renal standpoint, we will withhold hemodialysis per family wishes. Comfort measures only. Neo Manzo MD Jul 24, 2016 11:41
--- NOTE | 2016-07-24 13:12 | PCM.CONPAL ---
Date of Service Jul 24, 2016 Date of Hospital Admission: Jul 23, 2016 at 14:42 Date of Palliative Consult: Jul 24, 2016 Requesting Provider: Juarez Ortiz MD Reason Palliative Care Consult: Goals of Care Discussion Hospital Unit @time of consult: Progressive Care Palliative Care Recommendation Summary of palliative recommendations: -Symptom management (Pain/other) Pain- primarily LBP but also legs-- has a fairly deep decub. Will adjust meds Dyspnea- she doesn't notice any problem with this. Has some wheezing Delirium- due to severity of illness and possibly metabolites with renal failure. ESRD- now off dialysis Colon cancer- Dr. Mcmanus suggested comfort care with hospice. Sepsis- still receiving antibiotics-- needs further review. -DPOA/Advanced Directives/POLST--DNR/DNI comfort care. At this time family and Chata- DPOAHC per family-agree with decision to stop chemo and dialysis. Will minimize fluids-so far only 168CC in for the day Arrange for another family visit hopefully to include Brodie ge [facility]. Pt is no longer decisional. Reviewed goals of hospice- family is very much interested in Hospice to assist at [facility]. -Family/emotional support-very good.Unclear how much her mother understands with her profound hearing deficit but family states they will review it. Problems: End of Life Preferences DNR/DNI comfort Disposition unclear if to here or back at [facility] Resuscitation Status Resuscitation Status: DNR/DNI:Do Not Resuscitate/Intubate Limited Interventions: Medications and IV Fluid POLST Updates/Changes Artificially Admin Nutrition: No Artifical Nutrition by Tube POLST Discussed with: Health Care Agent (DPOAHC) . Advanced Care Planning Address: Comfort care Pain: Moderate Symptom management: Agitation, Delirium Pt History History of Present Illness PALLIATIVE CARE CONSULT NOTE: Request from Dr. Ortiz for review of goals of care. Chart reviewed from Palliative consult in 11/29, Dr. Mcmanus and Dr. Olmstead's notes. 60 yo patient with ESRD on hemodialysis with a dx of metastatic ovarian CA dating back to 08/01. She had fatigue and anemia and was found to be in renal failure and have a large pelvic mass. She has been receiving HD and until this month chemotx. She has had progressive weakness and debility for the last few months and has been sleeping most of the day and eating/drinking minimally for the past 2 weeks. She has been a resident of [facility] for the past year and was admitted to [facility] due to decreased mental status and sx/labs c/w sepsis with what appears to be GNR in urine and blood cultures. She was started on antibiotics. Dr. Mcmanus had defined no further treatment possible due to her progressive debility and weakness about 1 week ago and recommended Hospice. Dr. Olmstead has seen her this hospitalization and recommends no dialysis at this time Family gathered yest oleg and decided on DNR/DNI and comfort measures but did want antibiotics to be continued. DPOAHC reportedly Brodie-niece, [id number]-T do not have paperwork. 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 Past Surgical History Dialysis catheter placement Reports: Tonsillectomy Family History M alive and at bedside age 93yo F of emphysema Sister-A&W Social History Hx Alcohol Use: No Hx Substance Use: No Hx Tobacco Use: No Smoking Status: Never Smoker Social History Occupation: disabled, was living alone until dx then at [facility] Family Members Issues: she identifies primary support being nieces and nephews and friends Chata and Marvin Mckay Living Situation: resident at [facility] Palliative Performance Scale PPS Patient Status: Current PPS Ambulation: Totally Bed PPS Activity: Unable to do any activity PPS Intake: Minimal to sips PPS Conscious Level: Full or drowsey, +/- confusion Performance Scale: 20% ( 10-20%) Allergy Allergies Reviewed: Yes Medications Current Medications: Current Medications Sodium Chloride 1,000 ml @ 0 mls/hr Q0M IV; Start 07/23/16 at 14:47 Aztreonam/ Dextrose/Water 50 ml @ 100 mls/hr Q8H IV Last administered on t 06:04; Admin Dose 100 MLS/HR; Start 07/23/16 at 22:00 Heparin Sodium (Porcine) 5000 unit 5,000 unit Q12H SUBQ; Start 07/23/16 at 17:00 ; Stop 07/23/16 at 19:48; Status DC Famotidine/Sodium Chloride/Premix 50 ml @ 400 mls/hr HS IV; Start 07/23/16 at 21 :00; Stop 07/23/16 at 21:00; Status DC Al Hydrox/Mg Hydrox/Simethicone 30 ml Q6H PRN PO; Start 07/23/16 at 14:50 Ondansetron HCl 4-8 mg Q4H PRN IVPUSH; Start 07/23/16 at 14:50 Senna 17.2 mg BID PRN PO; Start 07/23/16 at 14:50 Polyethylene Glycol 17 gm 17 gm DAILY PRN PO; Start 07/23/16 at 14:50 Sodium Chloride 1,000 ml @ 125 mls/hr Q8H IV; Start 07/23/16 at 14:47; Stop 07/23 at 19:48; Status DC Sodium Chloride 10 ml 10 ml GUS IVFLUSH; Start 07/23/16 at 16:30 Sodium Chloride 250 ml @ 10 mls/hr Q24H IV Last administered on 07/23/16 17:48 ; Admin Dose 10 MLS/HR; Start 07/23/16 at 16:39 Morphine Sulfate 2 mg Q4H PRN IVPUSH Last administered on 07/24/16 11:57; Admin Dose 2 MG; Start 07/24/16 at 10:20 Scheduled Hydromorphone PF (Hydromorphone PF) 1 Mg/1 Ml Syringe 1 MG IVPUSH Q4H Lorazepam (Lorazepam Inj) 2 Mg/1 Ml Vial 1 MG IVPUSH Q4H Objective Findings Exam Vital Sign - Last Date Time Temp Pulse Resp B/P Pulse Ox O2 Delivery O2 Flow Rate FiO2 07/24/16 10:58 107 07/24/16 09:29 36.2 16 87/52 99 Nasal Cannula 2.00 Intake and Output 07/23/16 07/23/16 07/24/16 Cumulative From/Thru 15:00 23:00 07:00 07/23/16 11:47 - 07/24/16 05:11 Intake Total 2100 ml 360 ml 168 ml 2628 ml Output Total 0 ml 0 ml Balance 2100 ml 360 ml 168 ml 2628 ml Intake Oral 360 ml 360 ml IV Total 2100 ml 168 ml 2268 ml Output Urine Total 0 ml 0 ml General: Minimally responsive (sleeping. Arouses to ask to be turned, slightly agitated and goes back to sleep, more responsive this afternoon) Heart: Regular Rate/Rhythm Lungs: Diminished Neuro: Arousable (barely- not able to follow commands) Extremities: Edema (1+ UE and LE), Other (diffuse swelling LE and UE) Skin: Pressure Ulcer (with deep tunneling presacral) Lab/Diagnostics Lab and Imaging results reviewed in detail in EMR. Patient/Family Conference Members Present Family Members Present mother Kamaljit- age 93 and very [place] sister Beth Mckay- friend and as per all present one of the [facility] Medical Team Members Present? Luis Antonio SUTTON and Axel August-MS4 Discussion/Goals of Care Discussion FAMILY UNDERSTANDING OF DISEASE: Family understands severity of disease. Chata seems to have the best grasp. Reviewed potential time course with d/c of dialysis and minimal PO intake-days to 1-2 weeks. She may be a bit ahead on this due to marked decline in past 2 weeks. Reviewed ? of continued use of antibiotics. Will have another meeting with family this afternoon when all have gathered. ie issue of stopping dialysis but not stopping antibiotics. She does have evidence of sepsis on admit with + UC and BC Decision to withdraw dialysis and no further chemotherapy but to continue her antibiotics. Reviewed GOC in light of her antibiotics. All present wish to continue and defer further discussion with Massiel and 1st [facility] DISEASE PROGRESSION/EVIDENCE OF DECLINE: SYMPTOM BURDEN: GOALS: Comfort as main goal HOPES/WORRIES: Time spent Total time 70 minutes; >50% face to face with patient and/or family, providing counselling regarding plans and recommendations, and in care coordination with his/her medical teams. with coordination with hospital team and with CM/hospice. I also spent an additional [ ] minutes counseling for advanced care planning with the patient/the patients family/the surrogate decision maker. Annika Beard MD Jul 24, 2016 13:12 Total time [ ] minutes; >50% face to face with patient and/or family, providing counselling regarding plans and recommendations, and in care coordination with his/her medical teams. I also spent an additional [ ] minutes counseling for advanced care planning with the patient/the patients family/the surrogate decision maker. Annika Beard MD Jul 24, 2016 13:12
--- NOTE | 2016-07-24 14:40 | NUR ---
Patient comes from [facility] and gave access and faxed facesheet Updated RABBLER
--- NOTE | 2016-07-24 15:40 | NUR ---
Social Work: Initial Assessment Attempt Floorhand met with patient at bedside and attempted to complete initial assessment, but was unable to answer questions. Patient was alert but not oriented. SW attempted to call patient's DPOA, Marvin Mckay [phone], and complete initial assessment, but Mr. Mckay requested to be called back tomorrow. SW will continue to follow and attempt to complete initial assessment on tomorrow. Kerri Miner, BUDDY, ACM
--- NOTE | 2016-07-24 15:48 | NUR ---
Social Work: Continued Discharge Planning Food Analyst spoke with PC Marisa FIELD, and she stated that [facility] is able to open with the patient on 07/26/16 if the patient's DPOA choose for the patient to go back to [facility] with Hospice. SW will follow-up with patient's DPOA on tomorrow. Kerri Miner, BUDDY, ACM
[2016-07-24] MEDS: 0.9% Sodium Chloride 250 ML IV SCH (16:21)
--- NOTE | 2016-07-24 16:44 | NUR ---
Transfer Pt arrived to [facility] rm 1003 from [facility] 2025 at approx 1640. Rec'd report from Erik HOLBROOK. IV running abx and NS @10mls/hr. Pt arrived via hospital bed, no complaints of pain, family at bedside.
--- NOTE | 2016-07-24 17:05 | NUR ---
Wound Care Wound evaluation order received.60 yo female admitted with unresponsiveness and sepsis, history of ovarian cancer and ESRD. Coccyx Measurement: (length x width x depth) 3.0 x 5.5 x 1.6 cm Tunneling: None Underminin.7 at 12:00 and 1.5 at 3:00 and this is continuous Wound assessment: Stage 4 PU (POA) Epithelialization: less than 100% Fibrin amount: 76-100% Granulation color: Red and firm Periwound appearance: Intact Drainage and amount: Small amount of serosanguineous drainage Wound is positive for odor, exposed bone and exposed tendon /ligament There are areas of immanent skin breakdown above undermined skin areas of sacrum. Irrigated this wound with saline then packed with a single saline moist 4x4 piece of gauze covered with Abd pad and taped in place. recommend this be replaced daily by nursing. Position in sidelying right and left only.
--- NOTE | 2016-07-24 18:26 | NUR ---
PaceMaker Per shift report and family conversation pt has an experimental pacemaker that was placed last year at . PCC RN unsure if palliative team was aware of this. Spoke to Palliative She was aware and will investigate further.
--- NOTE | 2016-07-24 19:40 | PCM.PNMED ---
Subjective Date of Service Jul 24, 2016 Subjective Ms. Bunn is a 60 year old woman who has a history of metastatic ovarian carcinoma and end stage renal disease who presents with acute encephalopathy and unresponsiveness. Patient was sleeping in bed. Chata, one of patient's DPOA, was at her bedside and reports that it has been decided to move to comfort care. She states that the patient has not complained of pain yet today. Exam Vital Signs Vital Sign - Last Date Time Temp Pulse Resp B/P Pulse Ox O2 Delivery O2 Flow Rate FiO2 07/24/16 10:58 107 07/24/16 09:29 36.2 16 87/52 99 Nasal Cannula 2.00 Intake and Output 07/23/16 07/23/16 07/24/16 Cumulative From/Thru 15:00 23:00 07:00 07/23/16 11:47 - 07/24/16 05:11 Intake Total 2100 ml 360 ml 168 ml 2628 ml Output Total 0 ml 0 ml Balance 2100 ml 360 ml 168 ml 2628 ml Intake Oral 360 ml 360 ml IV Total 2100 ml 168 ml 2268 ml Output Urine Total 0 ml 0 ml Exam General: Middle-aged woman who is responsive only to pain HEENT: Normocephalic, atraumatic. Cardiovascular: Regular rate and rhythm with no murmurs, rubs, or gallops appreciated Pulmonary: Clear to auscultation bilaterally with no crackles, wheezes, or rhonchi. Decreased breath sounds bilaterally. Abdomen: Bowel tones present. Soft, nontender. Extremities: Edema of bilateral upper and lower extremities. Skin: Normal temperature, turgor, and texture. Decubitus ulcer with wound dressing intact. Neurological: Moves all extremities to painful stimuli does not open her eyes or respond to commands. Psychiatric: Unable to assess. IVs and Medications Medications Reviewed: Medications were reviewed in detail Lab and Diagnostics Result Diagram: 07/23/16 1128 07/23/16 1128 X-Rays, CTs and MRIs PROCEDURE: X-RAY CHEST ONE VIEW, PORTABLE IMPRESSION: No acute cardiopulmonary disease. Approved by: Jonathon Tai M.D. on 07/23/2016 at 11:54 PROCEDURE: CT BRAIN WITHOUT CONTRAST IMPRESSION: No acute intracranial disease process. Approved by: Bonnie Caballero MD, PhD on 07/23/2016 at 12:08 PROCEDURE: CT ANGIO CHEST PULMONARY EMBOLISM IMPRESSION: 1. No pulmonary embolus. 2. Numerous bilateral pulmonary nodules which have developed since prior examination obtained 05/04/2016. Pulmonary nodules have imaging characteristics most compatible with metastatic disease. 3. Subcarinal, mediastinal lymphadenopathy compatible with metastatic disease. 4. Liver has nodular margins suggestive of hepatic cirrhosis. Please correlate with clinical and laboratory findings. 5. Small amount of ascites in the upper abdomen. 6. Small left-sided pleural effusion. Trace right sided pleural effusion. Approved by: Bonnie Caballero MD, PhD on 07/23/2016 at 14:20 Assessment & Plan 1. Altered mental status, acute, present on admission. Active. - Likely due to number 2 and number 3. - No acute pulmonary embolism seen on CT scan 2. Severe sepsis - Tachycardia (121 bpm on initial presentation), tachypneic (29 on initial presentation), and elevated WBC (15.4) and blood pressure of 96/68 and 79/52 in the emergency department - Urinary tract infection based on urine analysis positive nitrite and moderate leukocyte esterase. - Patient is still receiving aztreonam and vancomycin intravenous antibiotics at family's request. Will be discussed further with palliative care. - Vancomycin currently dosed per pharmacy 3. Suspected complicated urinary tract infection. - Urinary tract infection based on urine analysis positive nitrite and moderate leukocyte esterase 4. End-stage renal disease, on hemodialysis. -Nephrology consulted and following. Their time and recommendations are appreciated. -Patient is now on comfort care and will not be receiving dialysis 5. 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 -Patient now on comfort care -Palliative care consulted and following. Their time and recommendations are appreciated. -Patient transferred out of [facility] -Morphine intravenous 2 mg every 2 hours as needed for pain -Ondansetron 4-8 mg intravenous every 4 hours as needed for nausea Other chronic conditions: 6. Pulmonary embolism. 7. Status post inferior vena cava filter. 8. Uterine bleeding. 9. Anemia in chronic kidney disease. 10. DNR/DNI, comfort measures. Diet: General as patient is on comfort care. Attending Statement The patient was seen and examined together with Dr. Wetzel on 07/24/2069 and I agree with the history, exam and plan as outlined in the note above. . Monica Wetzel DO Jul 24, 2016 13:33 Juarez Ortiz MD Jul 27, 2016 08:21
[2016-07-24] MEDS: HYDROmorphone 1 mg/mL Inj IVPUSH PRN (23:14)
[2016-07-25] MEDS: Sodium Chloride LOK Flush 10 mL Syringe IVFLUSH SCH ×2 (00:30→08:30)
--- NOTE | 2016-07-25 02:49 | NUR ---
PAIN: During initial assessment pt. c/o pain, restless, agitated, crying. Repositioned in bed frequently as pt. keeps asking repeatedly "pick me up, pick me up please". Family at her side. Given Morphine every 2 hr with little result. Per family request, she takes Dilaudid and Lorazepam usually. Paged Hospitalist. Orders given for prn Dilaudid and Lorazepam. Given 1 mg of IV Lorazepam, pt. slept for about 30 min. then woke up crying, agitated and restless. Given 1 mg of IV Dilaudid, effective, Pt. sleeping, resting comfortably after Dilaudid given. Lab reported 2 GRAM POSITIVE COCCI blood cultures results tonight. Pt. already on antibiotic Aztreonan, was given Vancomycin in the ED. Provider notified. On going care.
[2016-07-25] MEDS: Aztreonam Inj 500 MG in Dextrose 5% 50 ML IV SCH (06:09)
[2016-07-25] MEDS: HYDROmorphone 1 mg/mL Inj IVPUSH PRN ×2 (06:27→15:39)
--- NOTE | 2016-07-25 07:49 | NUR ---
Palliative care note (late note for 07/24/16) D/A: Phone call from Kim at [facility] to alert this worker that if pt returns to [facility], agency could open for services on 07/26/16. Phone call to kamila Gaxiola to alert. Dr. Beard meeting with family this afternoon and she is aware of above. P: Palliative to continue to follow. Marisa HEAD, CCM
--- NOTE | 2016-07-25 09:19 | NUR ---
JANI: Patient unable to accept JANI asked PROFESSIONAL HOUSING CONSULTANT to follow up with family via phone.
--- NOTE | 2016-07-25 10:19 | NUR ---
Palliative care note D/A: Case discussed this am in PC rounds. Dr. Beard was unable to hold family meeting yesterday due to inclement weather and family unable to attend. Case discussed in [facility] rounds today-if pain under control and pt medically stable, consideration given to dc today. Have confirmed with Kim at [facility] that agency can open 07/26/16 -time dependent on when pt dc's ( 07/25 vs 07/26 and time of day). Dr Beard aware of above. Needs to discuss goals of care with pt primary DPOA and family member who is DPOA, marilee Kay. (Note that many of decisions medically made for pt have been made by secondary DPOA and pt friends, Chata and Marvin Mckay. Phone call to pt donaldedi Calvilloime. She is currently working and unable to visit until her shift ends which is later in the afternoon. She is taking a break today at 1105 and agrees to phone call with Dr. Beard at that time. Dr. Beard aware of above. Discussed with Kim at [facility] that pt most likely leaving today. VM left for kamila Askew regarding above. P: Palliative care to follow. Marisa HEAD, CCM
[2016-07-25] MEDS ORDERED: LORA2VIA3 IVPUSH (11:55)
[2016-07-25] MEDS ORDERED: HYDR1DIS3 IVPUSH (11:55)
--- NOTE | 2016-07-25 12:00 | PCM.DIMED ---
Discharge Instructions Date of Service Jul 25, 2016 Dates of Hospitalization Jul 23, 2016 at 14:42 Discharge Diagnosis Discharge Diagnosis metastatic ovarian cancer on comfort care Gram negative cj bacteremia Patient Instructions You were hospitalized with being unresponsiveness, likely due to multiple advanced diseases, decision was made to start comfort care. Instruction to SNF Please use standing hydromorphone0.5-1mg q4h, ativan 1mg q4h either iv or po for patient's comfort Please note that goals of care is making patient comfortable, It is decided to stop dialysis, chemotherapy, antibiotics with family Please avoid unnecessary blood draws, checking vitals signs, finger sticks. Follow-up plan follow up with the doctor at the facility as needed Eneida Clayton MD Jul 25, 2016 12:00
--- NOTE | 2016-07-25 13:34 | NUR ---
Social Work Continued Discharge Planning: EMIR conducted discharge planning update. Order for discharge acknowledged. Plan is return back to [facility] with hospice of the services to open. EMIR spoke to UR specialist who states that patient accepted to [facility] today. EMIR spoke with [facility] who states that patient on list to open with hospice tomorrow from 10-11am. EMIR contacted and left voice mail message for patient KURTIS Kay, to discuss transfer today. SW to follow. PLAN: Transfer to [facility] today with [facility] to open tomorrow from 10-11am Mary SOUSA
[2016-07-25 14:26] VITALS: BP 98/64; PULSE 103; RESP 16; O2SAT 93
--- NOTE | 2016-07-25 14:34 | NUR ---
Faxed orders to [facility] and arranged [facility] transport for [facility] via [facility]. Updated IRRIGATOR GRAVITY FLOW and RN Also spoke with Olga Tavares about transport time.
--- NOTE | 2016-07-25 16:07 | NUR ---
Activity Pt awakens only to being moved and will not answer questions at this time. Pt resting comfortably during shift and only called out upon transfer to [facility] for discharge. Pt not able to turn or transfer self and orders changed for turning for pt comfort only.
--- NOTE | 2016-07-25 16:12 | NUR ---
Discharge Pt discharged at 1535 on [facility] with BLS transfer to [place]. Report called to Sabrina. Drivers have transfer packet and pt's belongings. Pt started calling out prior after transfer to [facility] stating "help me, help me", so medications given for pain. Port left in place for hospice care. Pt VS unchanged during shift.
--- NOTE | 2016-07-25 17:02 | PCM.PNPALL ---
Date of Service Jul 25, 2016 Date of Hospital Admission: Jul 23, 2016 at 14:42 Date of Palliative Consult: Jul 24, 2016 Palliative Care Recommendation Summary of palliative recommendations: -Symptom management (Pain/other) Pain- primarily LBP but also legs-- has a fairly deep decub. Will adjust meds Dyspnea- she doesn't notice any problem with this. Has some wheezing Delirium- due to severity of illness and possibly metabolites with renal failure. ESRD- now off dialysis Colon cancer- Dr. Mcmanus suggested comfort care with hospice. Sepsis- still receiving antibiotics-- needs further review. -DPOA/Advanced Directives/POLST--DNR/DNI comfort care. At this time family and Chata- DPOAHC per family-agree with decision to stop chemo and dialysis. Will minimize fluids-so far only 168CC in for the day Pt is no longer decisional. Reviewed goals of hospice- family is very much interested in Hospice to assist at [facility]. 07/25/16-reviewed GOC with Brodie- she understood question re antibiotics and OKed discontinuation with goal for comfort care. Reviewed need to change to oral meds--hydromorphone and lorazepam Will avoid PRN haloperidol due to NH/ECF issues with this. Could have regular dosing if necessary. Patient was remarkably awake yesterday so unclear how long this will be. She is having essentially no UO -Family/emotional support-very good.Unclear how much her mother understands with her profound hearing deficit but family states they will review it. Problems: End of Life Preferences DNR/DNI comfort Disposition OK to D/C to [facility] with Hospice to open tomorrw. Meds reviewed with Dr. Clayton before discharge Resuscitation Status Resuscitation Status: DNR/DNI:Do Not Resuscitate/Intubate Limited Interventions: Medications and IV Fluid POLST Updates/Changes Artificially Admin Nutrition: No Artifical Nutrition by Tube POLST Discussed with: Health Care Agent (DPOAHC) . Advanced Care Planning Address: Comfort care Symptom management: Agitation, Pain Palliative Subjective Palliative Care Daily Responde: Patient, Family/Proxy, Team Patient/Family Concerns Attempted to have family conference yest but Brodie was not able to attend and others were leaving due to weather. TC to [facility] today to review GOC Patient obtunded after having a very restless night Palliative Performance Scale PPS Patient Status: Current PPS Ambulation: Totally Bed PPS Activity: Unable to do any activity PPS Self-Care: Total Care PPS Intake: Minimal to sips PPS Conscious Level: Full or drowsey, +/- confusion Performace Scale: 10% ( 10-20%) Objective Findings Exam Vital Sign - Last Date Time Temp Pulse Resp B/P Pulse Ox O2 Delivery O2 Flow Rate FiO2 07/25/16 14:26 36.3 103 16 98/64 93 Room Air 07/24/16 09:29 2.00 Intake and Output 07/24/16 07/24/16 07/25/16 Cumulative From/Thru 15:00 23:00 07:00 07/23/16 11:47 - 07/25/16 06:13 Intake Total 523 ml 192 ml 3343 ml Output Total 0 ml 0 ml Balance 523 ml 192 ml 3343 ml Intake Oral 300 ml 0 ml 660 ml IV Total 223 ml 192 ml 2683 ml Output Urine Total 0 ml 0 ml # Bowel Movements 0 0 General: Minimally responsive (sleeping. Arouses to ask to be turned, slightly agitated and goes back to sleep, more responsive this afternoon) Heart: Regular Rate/Rhythm Lungs: Diminished Abdomen: Soft, Tenderness to Palpation (mildly tender) Neuro: Arousable (barely- not able to follow commands) Extremities: Edema (1+ UE and LE), Other (diffuse swelling LE and UE) Skin: Pressure Ulcer (with deep underscoring presacral) Lab/Diagnostics Lab and Imaging results reviewed in detail in EMR. Patient/Family Conference Members Present Family Members Present Abundio wooten Medical Team Members Present? [facility], CM/SS, staff submarine warfare officer and Dr. Clayton Time spent Total time 40 minutes; >50% face to face with patient and/or family, providing counselling regarding plans and recommendations, and in care coordination with his/her medical teams. I also spent an additional [ ] minutes counseling for advanced care planning with the patient/the patients family/the surrogate decision maker. copies to: Nate Brunson MD; Gavino Clark MD, Deborah A MD Jul 25, 2016 17:01
--- NOTE | 2016-07-26 20:36 | PCM.DC.MED ---
Discharge Summary Date of Service Jul 25, 2016 Dates of Hospitalization Date of Hospital Admission Jul 23, 2016 at 14:42 Date of Discharge: Jul 25, 2016 Providers: Admitting Physician: Misty Gross MD Primary Care Physician: Gavino Clark MD Attending Physician: Misty Gross MD Diagnosis at Time of Discharge Diagnosis at Time of Discharge metastatic ovarian cancer on comfort care Gram negative cj bacteremia Consultations Palliative care Procedures XRay, CTs & MRIs PROCEDURE: X-RAY CHEST ONE VIEW, PORTABLE IMPRESSION: No acute cardiopulmonary disease. Approved by: Jonathon Tai M.D. on 07/23/2016 at 11:54 PROCEDURE: CT BRAIN WITHOUT CONTRAST IMPRESSION: No acute intracranial disease process. Approved by: Bonnie Caballero MD, PhD on 07/23/2016 at 12:08 PROCEDURE: CT ANGIO CHEST PULMONARY EMBOLISM IMPRESSION: 1. No pulmonary embolus. 2. Numerous bilateral pulmonary nodules which have developed since prior examination obtained 05/04/2016. Pulmonary nodules have imaging characteristics most compatible with metastatic disease. 3. Subcarinal, mediastinal lymphadenopathy compatible with metastatic disease. 4. Liver has nodular margins suggestive of hepatic cirrhosis. Please correlate with clinical and laboratory findings. 5. Small amount of ascites in the upper abdomen. 6. Small left-sided pleural effusion. Trace right sided pleural effusion. Approved by: Bonnie Caballero MD, PhD on 07/23/2016 at 14:20 Brief History H&P performed by on 07/23 60-year-old female who has a history of metastatic ovarian carcinoma which per ER M.Ilir. he is not suitable for further ongoing treatments as it is unresponsive and history of end-stage renal disease and also has a history of a PE who presents with acute encephalopathy as she was en route to dialysis when she had. Of unresponsiveness and was brought into the emergency room. Have UTI with sepsis, was 15.4 she had sinus tachycardia rate of 136. Nephrology was also counseled that at the time of admission she was started on IV vancomycin and IV aztreonam in the emergency room for UTI with sepsis. She was unable to give any further history as she was quite confused but did arouse to pain. She did have a CTA of chest which is as follows: Hospital Course pt was consulted by palliative care, started comfort care with morphine, zofran , ativan. abx was withdrawn upon d/c, remained comfortable, discharged to [place]. 1. Altered mental status, acute, present on admission. Active. - Likely due to number 2 and number 3. - No acute pulmonary embolism seen on CT scan 2. Severe sepsis - Tachycardia (121 bpm on initial presentation), tachypneic (29 on initial presentation), and elevated WBC (15.4) and blood pressure of 96/68 and 79/52 in the emergency department - Urinary tract infection based on urine analysis positive nitrite and moderate leukocyte esterase. - Patient is still receiving aztreonam and vancomycin intravenous antibiotics at family's request. Will be discussed further with palliative care. - Vancomycin currently dosed per pharmacy 3. Suspected complicated urinary tract infection. - Urinary tract infection based on urine analysis positive nitrite and moderate leukocyte esterase 4. End-stage renal disease, on hemodialysis. -Nephrology consulted and following. Their time and recommendations are appreciated. -Patient is now on comfort care and will not be receiving dialysis 5. 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 -Patient now on comfort care -Palliative care consulted and following. Their time and recommendations are appreciated. -Patient transferred out of [facility] -Morphine intravenous 2 mg every 2 hours as needed for pain -Ondansetron 4-8 mg intravenous every 4 hours as needed for nausea Other chronic conditions: 6. Pulmonary embolism. 7. Status post inferior vena cava filter. 8. Uterine bleeding. 9. Anemia in chronic kidney disease. 10. DNR/DNI, comfort measures. Diet: General as patient is on comfort care. Exam Vital Signs (Last) Date Time Temp Pulse Resp B/P Pulse Ox O2 Delivery O2 Flow Rate FiO2 07/25/16 14:26 36.3 103 16 98/64 93 Room Air 07/24/16 09:29 2.00 Exam NAD, comfortable, RRR, nl s1 s2 no mrg CTAB no w,c S,ND,NT,BS+ warm, no edema Test 07/23/16 11:28 07/23/16 12:53 White Blood Count 15.4th/mm3 (3.8-10.1) Red Blood Count 3.05mil/mm3 (3.90-5.20) Hemoglobin 8.7g/dL (12.0-15.6) Hematocrit 29.0% (35.0-46.0) Mean Corpuscular Volume 95.1fL (81-100) Mean Corpuscular Hemoglobin 28.5pg (27.0-35.0) Mean Corpuscular Hemoglobin Concent 30.0% (32.0-37.0) Red Cell Distribution Width 17.0% (12.3-15.4) Platelet Count 165bil/L (150-400) Neutrophils (%) (Auto) 82% (40-74) Lymphocytes (%) (Auto) 6% (14-46) Monocytes (%) (Auto) 6% (4-12) Eosinophils (%) (Auto) 0% (0-5) Basophils (%) (Auto) 0% (0-3) Band Neutrophils % 3% (1-5) Metamyelocytes % 1% (0-0) Myelocytes % 2% (0-0) D-Dimer 16.9mg/L (<0.50) Sodium Level 139mEq/L (134-144) Potassium Level 3.5mEq/L (3.5-5.2) Chloride Level 94mEq/L (97-108) Carbon Dioxide Level 18mmol/L (18-29) Blood Urea Nitrogen 27mg/dL (6-24) Creatinine 4.87mg/dL (0.57-1.00) Estimat Glomerular Filtration Rate 13mL/min (>59) Glucose Level 159mg/dL (60-99) Hemoglobin A1c 4.8% (4.8-5.6) Lactic Acid Level 7.3mmol/L (0.4-2.0) Calcium Level 8.0mg/dL (8.5-10.1) Phosphorus Level 4.9mg/dL (2.5-4.9) Magnesium Level 1.9mg/dL (1.6-2.6) Total Bilirubin 0.9mg/dL (0.0-1.2) Aspartate Amino Transf (AST/SGOT) 9U/L (0-50) Alanine Aminotransferase (ALT/SGPT) < 5U/L (0-32) Alkaline Phosphatase 78U/L (25-165) Troponin T 0.179ug/L (0.0-0.011) Total Protein 6.1g/dL (6.4-8.4) Albumin 2.2g/dL (3.4-5.0) Salicylates Level < 3.0ug/mL (30-250) Acetaminophen Level < 15.0ug/mL Rx (10-25) Alcohol, Quantitative < 10mg/dL (0-10) Urine Color Dark yellow (YELLOW) Urine Appearance Turbid (CLEAR,HAZY) Urine pH 7.0 (5.0-8.0) Urine Specific [place] 1.020 (1.003-1.035) Urine Protein 100mg/dL (NEG,TRACE) Urine Glucose (UA) Negativemg/dL (NEGATIVE) Urine Ketones Negativemg/dL (NEGATIVE) Urine Occult Blood Moderate (NEGATIVE) Urine Nitrite Positive (NEGATIVE) Urine Bilirubin Negative (NEGATIVE) Urine Urobilinogen Normalmg/dL (NORMAL) Urine Leukocyte Esterase Moderate (NEGATIVE) Urine RBC 0-2/hpf (0-2) Urine WBC Packed/hpf (0-5) Urine Epithelial Cells Occasional/hpf (NONE-MOD) Urine Crystals Ammonium biurates (NONE Urine Bacteria Many/hpf (NONE-FEW) Urine Hyaline Casts None/lpf (NONE) Urine Granular Casts None seen (NONE SEEN) Urine Waxy Casts None seen (NONE SEEN) Urine Red Blood Cell Casts None seen (NONE SEEN) Urine White Blood Cell Casts None seen (NONE SEEN) Urine Mucus None seen (None Seen) Urine Trichomonas None seen (NONE SEEN) Urine Yeast None (NONE SEEN) Urinalysis Comment None Urine Culture Reflexed Indicated Discharge Medications Discharge Medications Hydromorphone PF (Hydromorphone PF) 1 Mg/1 Ml Syringe 1 MG IVPUSH Q4H Prescribed by: ENEIDA VALIENTE MD Lorazepam (Lorazepam Inj) 2 Mg/1 Ml Vial 1 MG IVPUSH Q4H Prescribed by: ENEIDA VALIENTE MD Followup Plan Disposition: [facility] comfort care Follow-up plan follow up with the doctor at the facility as needed Patient Instructions You were hospitalized with being unresponsiveness, likely due to multiple advanced diseases, decision was made to start comfort care. Instruction to SNF Please use standing hydromorphone0.5-1mg q4h, ativan 1mg q4h either iv or po for patient's comfort Please note that goals of care is making patient comfortable, It is decided to stop dialysis, chemotherapy, antibiotics with family Please avoid unnecessary blood draws, checking vitals signs, finger sticks. Time spent 35min Eneida Valiente MD Jul 26, 2016 20:36
== END 2016-07-25 15:30 | DRG 871 ==
LOC: EDUNIT# 10:46 → EDBD 10:46 → SED 10:46 → PCC 14:42 → OSC 07-24 15:59
PROVIDERS: ADMIT Specialist; ATTEND Specialist
DX: A41.9 Sepsis, unspecified organism (principal); R65.21 Severe sepsis with septic shock; N18.6 End stage renal disease; G93.41 Metabolic encephalopathy; R40.2122 Coma scale, eyes open, to pain, at arrival to emergency department; N39.0 Urinary tract infection, site not specified; I27.82 Chronic pulmonary embolism; Z99.2 Dependence on renal dialysis; Z92.21 Personal history of antineoplastic chemotherapy; Z79.01 Long term (current) use of anticoagulants; Z66 Do not resuscitate; C55 Malignant neoplasm of uterus, part unspecified; C57.00 Malignant neoplasm of unspecified fallopian tube; D63.1 Anemia in chronic kidney disease; Z51.5 Encounter for palliative care; B96.89 Other specified bacterial agents as the cause of diseases classified elsewhere; R40.2352 Coma scale, best motor response, localizes pain, at arrival to emergency department; R40.2242 Coma scale, best verbal response, confused conversation, at arrival to emergency department; R40.2422 Glasgow coma scale score 9-12, at arrival to emergency department